=== PATIENT | female | born 1980 | race Caucasian/White ===

== ENCOUNTER 2019-08-04 18:54 | Emergency (ER) | payer BC ==
[2019-08-04] MEDS ORDERED: SODIUM CHLORIDE 0.9% 1,000 ML IV STA (19:26)
--- NOTE | 2019-08-04 19:30 | ED ---
General Adult HPI - General Chief complaint: Syncope Stated complaint: abn EKG Time Seen by Provider: 08/04/19 19:13 Source: patient Mode of arrival: ambulatory Limitations: no limitations - History of Present Illness Initial comments: 39-year-old female patient presents to the emergency department today for abnormal EKG. Patient states that earlier today while doing dishes she became very dizzy, felt like her heart was slowing down, and nearly passed out. Patient states that this happened twice so she presented to her primary care physician's office. States they did perform EKG which appeared different from one performed in the spring. Patient states that she does have history of panic disorder and PTSD. States that she is very anxious at this time. States that at the time of symptom onset she did not have any chest pain or tightness. She denied shortness of breath. States she now does feel some chest tightness but believes it is related to her anxiety. She states she is nauseated but has not vomited. States that she has recently been sick with upper respiratory infection and did have vomiting and diarrhea on Friday. Patient denies any recent rash, fever, chills, diarrhea, constipation, back pain, numbness, tingling, hematuria, dysuria, urinary frequency, urinary urgency headache, visual changes, or any other complaints. - Related Data Home Medications Medication Instructions Recorded Confirmed ALPRAZolam [Xanax] 0.25 mg PO DAILY PRN 08/04/19 08/04/19 Naproxen Sodium [Aleve] 440 mg PO Q12HR 08/04/19 08/04/19 busPIRone HCl [Buspar] 5 mg PO DAILY 08/04/19 08/04/19 Allergies Allergy/AdvReac Type Severity Reaction Status Date / Time codeine Allergy Rash/Hives Verified 08/04/19 19:21 Review of Systems ROS Statement: Those systems with pertinent positive or pertinent negative responses have been documented in the HPI. ROS Other: All systems not noted in ROS Statement are negative. Past Medical History Past Medical History: No Reported History History of Any Multi-Drug Resistant Organisms: None Reported Past Surgical History: No Surgical Hx Reported, Adenoidectomy, Ear Surgery, Or thopedic Surgery, Tonsillectomy Additional Past Surgical History / Comment(s): R foot, R hand, nose surgery Past Psychological History: Anxiety, Panic Disorder Smoking Status: Current every day smoker Past Alcohol Use History: Occasional Past Drug Use History: None Reported General Exam Limitations: no limitations General appearance: alert, in no apparent distress, other (This is a well- developed, well-nourished adult female patient in no acute distress. Vital signs upon presentation are temperature 98.8F, pulse 85, respirations 18, blood pressure 147/81, pulse ox 100% on room air.) Eye exam: Present: normal appearance, PERRL, EOMI. Absent: scleral icterus, conjunctival injection, periorbital swelling ENT exam: Present: normal exam, normal oropharynx, mucous membranes moist Respiratory exam: Present: normal lung sounds bilaterally. Absent: respiratory distress, wheezes, rales, rhonchi, stridor Cardiovascular Exam: Present: regular rate, normal rhythm, normal heart sounds. Absent: systolic murmur, diastolic murmur, rubs, gallop, clicks GI/Abdominal exam: Present: soft, normal bowel sounds. Absent: distended, tenderness, guarding, rebound, rigid Neurological exam: Present: alert, oriented X3, CN II-XII intact Psychiatric exam: Present: anxious, other (Tearful) Skin exam: Present: warm, dry, intact, normal color. Absent: rash Course Vital Signs 08/04/19 08/04/19 08/04/19 18:59 19:41 19:47 Temperature 98.8 F Pulse Rate 85 Pulse Rate [ 79 Apical] Respiratory 18 Rate Blood Pressure 147/81 114/80 O2 Sat by Pulse 100 98 Oximetry 08/04/19 08/04/19 08/04/19 19:50 20:00 20:10 Temperature Pulse Rate 90 77 Pulse Rate [ Apical] Respiratory 16 16 Rate Blood Pressure 114/80 114/80 126/81 O2 Sat by Pulse 98 99 Oximetry 08/04/19 08/04/19 08/04/19 20:30 20:40 20:50 Temperature Pulse Rate 74 79 80 Pulse Rate [ Apical] Respiratory 18 18 13 Rate Blood Pressure 126/81 108/70 108/70 O2 Sat by Pulse 100 100 100 Oximetry 08/04/19 08/04/19 08/04/19 21:00 21:10 21:20 Temperature Pulse Rate 77 78 79 Pulse Rate [ Apical] Respiratory 22 20 20 Rate Blood Pressure 108/70 103/65 103/65 O2 Sat by Pulse 98 99 99 Oximetry 09/18/19 21:50 Temperature 98.0 F Pulse Rate 76 Pulse Rate [ Apical] Respiratory 16 Rate Blood Pressure 122/77 O2 Sat by Pulse 98 Oximetry EKG Findings - EKG Comments: EKG Findings:: EKG obtained at 194 shows normal sinus rhythm with a ventricular rate of 88, WA interval 142, QRS duration 88, QT 362, QTc 438. No evidence of ST elevation or depression. Medical Decision Making - Medical Decision Making 39-year-old female patient presented to the emergency department today for evaluation of 2 episodes of near syncope earlier today. Patient was seen in her primary care physician's office they told her her EKG had changed from previous and they instructed her to present to the emergency department. Physical examination is unremarkable. Lung and heart sounds are normal. She is neurologically intact with no focal deficits. Labs reviewed and were unremarkable. EKG showed normal sinus rhythm. Vital signs are stable. She'll be discharged at this time to follow-up with her primary care physician for recheck in 1-2 days. Return parameters were discussed in detail. She verbalizes understanding and agrees with this plan - Lab Data Result diagrams: 08/04/19 19:57 08/04/19 19:57 Lab Results 08/04/19 08/04/19 08/04/19 Range/Units 19:57 19:57 19:57 WBC 11.1 H (3.8-10.6) k/uL RBC 4.61 (3.80-5.40) m/uL Hgb 14.9 (11.4-16.0) gm/dL Hct 43.6 (34.0-46.0) % MCV 94.5 (80.0-100.0) fL MCH 32.3 (25.0-35.0) pg MCHC 34.2 (31.0-37.0) g/dL RDW 14.2 (11.5-15.5) % Plt Count 182 (150-450) k/uL Neutrophils % 71 % Lymphocytes % 23 % Monocytes % 3 % Eosinophils % 2 % Basophils % 1 % Neutrophils # 7.8 H (1.3-7.7) k/uL Lymphocytes # 2.5 (1.0-4.8) k/uL Monocytes # 0.3 (0-1.0) k/uL Eosinophils # 0.2 (0-0.7) k/uL Basophils # 0.1 (0-0.2) k/uL PT 10.1 (9.0-12.0) sec INR 0.9 (<1.2) APTT 22.4 (22.0-30.0) sec Sodium 138 (137-145) mmol/L Potassium 5.0 (3.5-5.1) mmol/L Chloride 105 (98-107) mmol/L Carbon Dioxide 23 (22-30) mmol/L Anion Gap 10 mmol/L BUN 10 (7-17) mg/dL Creatinine 0.58 (0.52-1.04) mg/dL Est GFR (CKD-EPI)AfAm >90 (>60 ml/min/1.73 sqM) Est GFR (CKD-EPI)NonAf >90 (>60 ml/min/1.73 sqM) Glucose 89 (74-99) mg/dL Calcium 9.4 (8.4-10.2) mg/dL Magnesium 2.1 (1.6-2.3) mg/dL Total Bilirubin 1.2 (0.2-1.3) mg/dL AST 33 (14-36) U/L ALT 14 (9-52) U/L Alkaline Phosphatase 54 (38-126) U/L Troponin I (0.000-0.034) ng/mL Total Protein 8.1 (6.3-8.2) g/dL Albumin 4.8 (3.5-5.0) g/dL Urine Color Urine Appearance (Clear) Urine pH (5.0-8.0) Ur Specific Crawford (1.001-1.035) Urine Protein (Negative) Urine Glucose (UA) (Negative) Urine Ketones (Negative) Urine Blood (Negative) Urine Nitrite (Negative) Urine Bilirubin (Negative) Urine Urobilinogen (<2.0) mg/dL Ur Leukocyte Esterase (Negative) 08/04/19 08/04/19 Range/Units 19:57 19:57 WBC (3.8-10.6) k/uL RBC (3.80-5.40) m/uL Hgb (11.4-16.0) gm/dL Hct (34.0-46.0) % MCV (80.0-100.0) fL MCH (25.0-35.0) pg MCHC (31.0-37.0) g/dL RDW (11.5-15.5) % Plt Count (150-450) k/uL Neutrophils % % Lymphocytes % % Monocytes % % Eosinophils % % Basophils % % Neutrophils # (1.3-7.7) k/uL Lymphocytes # (1.0-4.8) k/uL Monocytes # (0-1.0) k/uL Eosinophils # (0-0.7) k/uL Basophils # (0-0.2) k/uL PT (9.0-12.0) sec INR (<1.2) APTT (22.0-30.0) sec Sodium (137-145) mmol/L Potassium (3.5-5.1) mmol/L Chloride (98-107) mmol/L Carbon Dioxide (22-30) mmol/L Anion Gap mmol/L BUN (7-17) mg/dL Creatinine (0.52-1.04) mg/dL Est GFR (CKD-EPI)AfAm (>60 ml/min/1.73 sqM) Est GFR (CKD-EPI)NonAf (>60 ml/min/1.73 sqM) Glucose (74-99) mg/dL Calcium (8.4-10.2) mg/dL Magnesium (1.6-2.3) mg/dL Total Bilirubin (0.2-1.3) mg/dL AST (14-36) U/L ALT (9-52) U/L Alkaline Phosphatase (38-126) U/L Troponin I <0.012 (0.000-0.034) ng/mL Total Protein (6.3-8.2) g/dL Albumin (3.5-5.0) g/dL Urine Color Light Yellow Urine Appearance Clear (Clear) Urine pH 5.5 (5.0-8.0) Ur Specific Crawford 1.004 (1.001-1.035) Urine Protein Negative (Negative) Urine Glucose (UA) Negative (Negative) Urine Ketones 1+ H (Negative) Urine Blood Negative (Negative) Urine Nitrite Negative (Negative) Urine Bilirubin Negative (Negative) Urine Urobilinogen <2.0 (<2.0) mg/dL Ur Leukocyte Esterase Negative (Negative) - Radiology Data Radiology results: report reviewed, image reviewed Two-view x-ray of the chest is obtained. Report was reviewed in its entirety. Impression by Dr. Shen shows normal chest. Disposition Clinical Impression: Near syncope Disposition: HOME SELF-CARE Condition: Good Instructions (If sedation given, give patient instructions): Near Syncope (ED) Additional Instructions: Increase fluids. Rest. Follow-up with your primary care physician for recheck in 1-2 days. Return to the emergency department immediately for any new, worse jalil, or concerning symptoms. Is patient prescribed a controlled substance at d/c from ED?: No Referrals: Jake Carter MD [Primary Care Provider] - 1-2 days Time of Disposition: 21:42
[2019-08-04 20:07] LABS: Basophils # (A) 0.1 k/uL (0-0.2); Basophils % (A) 1 %; Eosinophils # (A) 0.2 k/uL (0-0.7); Eosinophils % (A) 2 %; HCT 43.6 % (34.0-46.0); HGB 14.9 gm/dL (11.4-16.0); Lymphocytes # (A) 2.5 k/uL (1.0-4.8); Lymphocytes % (A) 23 %; MCH 32.3 pg (25.0-35.0); MCHC 34.2 g/dL (31.0-37.0); MCV 94.5 fL (80.0-100.0); Mean Platelet Volume 8.1; Monocytes # (A) 0.3 k/uL (0-1.0); Monocytes % (A) 3 %; Neutrophils # (A) 7.8 k/uL (1.3-7.7); Neutrophils % (A) 71 %; Platelet Count 182 k/uL (150-450); RBC 4.61 m/uL (3.80-5.40); RDW 14.2 % (11.5-15.5); WBC 11.1 k/uL (3.8-10.6)
[2019-08-04 20:16] LABS: Appearance,Urine Clear (Clear); Bilirubin,Urine Negative (Negative); Blood,Urine Negative (Negative); Color,Urine Light Yellow; Glucose,Urine (UA) Negative (Negative); Ketones,Urine 1+ (Negative); Leukocyte Esterase,Urine Negative (Negative); Nitrite,Urine Negative (Negative); PH, Urine 5.5 (5.0-8.0); Protein,Urine Negative (Negative); Specific Gravity,Urine 1.004 (1.001-1.035); Urobilinogen,Urine <2.0 mg/dL (<2.0)
[2019-08-04 20:17] LABS: INR 0.9 (<1.2); Partial Thromboplastin Time 22.4 sec (22.0-30.0); Prothrombin Time 10.1 sec (9.0-12.0)
--- NOTE | 2019-08-04 20:24 | XR ---
EXAMINATION TYPE: XR chest 2V DATE OF EXAM: 08/04/2019 COMPARISON: NONE HISTORY: Syncope. Abnormal cardiogram TECHNIQUE: Frontal and lateral views of the chest are obtained. FINDINGS: Heart and mediastinum are normal. Lungs are clear. Diaphragm is normal. Bony thorax appear s normal. IMPRESSION: Normal chest.
[2019-08-04 20:29] LABS: ALT 14 U/L (9-52); AST 33 U/L (14-36); African American GFR (CKD) >90 (>60 ml/min/1.73 sqM); Albumin 4.8 g/dL (3.5-5.0); Alkaline Phosphatase 54 U/L (38-126); Anion Gap 10 mmol/L; Blood Urea Nitrogen 10 mg/dL (7-17); Calcium 9.4 mg/dL (8.4-10.2); Carbon Dioxide 23 mmol/L (22-30); Chloride 105 mmol/L (98-107); Glucose 89 mg/dL (74-99); Magnesium 2.1 mg/dL (1.6-2.3); Sodium 138 mmol/L (137-145); Total Bilirubin 1.2 mg/dL (0.2-1.3); Total Protein 8.1 g/dL (6.3-8.2)
[2019-08-04 21:51] VITALS: BP 122/77; PULSE 76; RESP 16; TEMP 98
== END 2019-08-04 21:51 | disposition home or self-care (01) ==
LOC: EC 18:54
DX: R55 Syncope and collapse (principal); F41.9 Anxiety disorder, unspecified; F41.0 Panic disorder [episodic paroxysmal anxiety]; F17.200 Nicotine dependence, unspecified, uncomplicated; Z79.1 Long term (current) use of non-steroidal anti-inflammatories (NSAID); Z79.899 Other long term (current) drug therapy; Z88.5 Allergy status to narcotic agent
CPT/HCPCS: 36415; 71046; 80053; 81003; 83735; 84484; 85025; 85610; 85730; 93005; 96360; 96361; 99284

== ENCOUNTER → 2019-08-24 | Outpatient (CLI) | payer BC ==
--- NOTE | 2019-08-25 11:40 | ECHOF ---
Referral Reason:R94.31 abnormal EKG MEASUREMENTS -------- HEIGHT: 167.6 cm WEIGHT: 58.1 kg BP: RVIDd: 2.8 cm (< 3.3) IVSd: 1.2 cm (0.6 - 1.1) LVIDd: 3.2 cm (3.9 - 5.3) LVPWd: 1.1 cm (0.6 - 1.1) IVSs: 1.6 cm LVIDs: 2.0 cm LVPWs: 1.8 cm LAESV Index (A-L): 26.11 ml/m Ao Diam: 3.2 cm (2.0 - 3.7) AV Cusp: 1.9 cm (1.5 - 2.6) LA Diam: 3.2 cm (2.7 - 3.8) TAPSE: 2.1 cm EPSS: 0.6 cm MV E Preet: 0.91 m/s MV DecT: 172 ms MV A Preet: 0.67 m/s MV E/A Ratio: 1.36 RAP: 5.00 mmHg RVSP: 18.45 mmHg MV EF SLOPE: 103.86 mm/s (70 - 150) MV EXCURSION: 0.98 cm (> 18.000) FINDINGS -------- Sinus rhythm. This was a technically good study. The left ventricular size is normal. There is mild concentric left ventricular hypertrophy. Overa ll left ventricular systolic function is normal with, an EF between 55 - 60 %. The diastolic fillin g pattern is normal for the age of the patient 6.61. The right ventricle is normal in size. Normal LA size by volume 22+/-6 ml/m2. The right atrial size is normal. Interatrial and interventricular septum intact. The aortic valve is trileaflet and appears structurally normal. There is no evidence of aortic regu rgitation. There is no evidence of aortic stenosis. No mitral regurgitation. Mild tricuspid regurgitation present. There is no evidence of pulmonary hypertension. The right v entricular systolic pressure, as measured by Doppler, is 18.45mmHg. There is no pulmonic regurgitation present. The aortic root size is normal. The inferior vena cava is mildly dilated. There is no pericardial effusion. CONCLUSIONS -------- 1. Sinus rhythm. 2. This was a technically good study. 3. The left ventricular size is normal. 4. There is mild concentric left ventricular hypertrophy. 5. Overall left ventricular systolic function is normal with, an EF between 55 - 60 %. 6. The diastolic filling pattern is normal for the age of the patient 6.61 7. The right ventricle is normal in size. 8. Normal LA size by volume 22+/-6 ml/m2. 9. The right atrial size is normal. 10. Interatrial and interventricular septum intact. 11. The aortic valve is trileaflet and appears structurally normal. 12. There is no evidence of aortic regurgitation. 13. There is no evidence of aortic stenosis. 14. No mitral regurgitation. 15. Mild tricuspid regurgitation present. 16. There is no evidence of pulmonary hypertension. 17. The right ventricular systolic pressure, as measured by Doppler, is 18.45mmHg. 18. There is no pulmonic regurgitation present. 19. The aortic root size is normal. 20. The inferior vena cava is mildly dilated. 21. There is no pericardial effusion. MINI BACCARAT DEALER: Sharri Adamson RDCS
== END | disposition home or self-care (01) ==
LOC: RADECHMAIN 16:27
PROVIDERS: ATTEND Family Medicine
DX: I07.1 Rheumatic tricuspid insufficiency (principal)
CPT/HCPCS: 93306

== ENCOUNTER → 2019-09-01 | Outpatient (CLI) | payer BC ==
--- NOTE | 2019-09-01 19:37 | P.STRESS ---
- Stress Test Note Stress Test Results/Findings: Exam Performed: stress test Exam Date: 09/01/19 Reason for Exam: Abnormal EKG Height: 5 ft 5 in Weight: 56.245 kg Protocol: Miki Stage: 3 Duration of Exercise: 8:25 Resting Heart Rate: 102 Resting Blood Pressure: 103/76 Maximum Achieved Heart Rate: 159 Maximum Achieved Blood Pressure: 157/67 85% PMHR: 155 100% PMHR: 182 METS: 10.1 Technologist Comment: Stress Test Results/Findings: This is a 39-year-old female being evaluated for symptoms of chest pain and palpitations. Stress data Baseline EKG showed sinus rhythm with normal LA interval, QRS duration, and poor R-wave progression in the anterior leads. Blood pressure at rest is 103/75, pulse rate of 1 and 2. Patient walked on the Miki protocol for 8 minutes and 25 seconds achieving a maximum heart rate of 159 with a blood pressure 157/67. EKGs taken during and after exercise did not reveal changes to suggest ischemia. Patient did not experience any chest pain. No arrhythmias are noted. Final impression: #1. Negative stress test #2. Patient did not experience any chest pain #3. Average exercise capacity #4. No arrhythmias noted
--- NOTE | 2019-09-02 11:25 | EST ---
Stress Test Results/Findings: Exam Performed: stress test Exam Date: 09/01/19 Reason for Exam: Abnormal EKG Height: 5 ft 5 in Weight: 56.245 kg Protocol: Miki Stage: 3 Duration of Exercise: 8:25 Resting Heart Rate: 102 Resting Blood Pressure: 103/76 Maximum Achieved Heart Rate: 159 Maximum Achieved Blood Pressure: 157/67 85% PMHR: 155 100% PMHR: 182 METS: 10.1 Technologist Comment: Stress Test Results/Findings: This is a 39-year-old female being evaluated for symptoms of chest pain and palpitations. Stress data Baseline EKG showed sinus rhythm with normal VT interval, QRS duration, and poor R-wave progression in the anterior leads. Blood pressure at rest is 103/75, pulse rate of 1 and 2. Patient walked on the Miki protocol for 8 minutes and 25 seconds achieving a maximum heart rate of 159 with a blood pressure 157/67. EKGs taken during and after exercise did not reveal changes to suggest ischemia. Patient did not experience any chest pain. No arrhythmias are noted. Final impression: #1. Negative stress test #2. Patient did not experience any chest pain #3. Average exercise capacity #4. No arrhythmias noted MTDD
== END | disposition home or self-care (01) ==
LOC: RADNMMAIN 08:36
PROVIDERS: ATTEND Family Medicine
DX: R94.31 Abnormal electrocardiogram [ECG] [EKG] (principal)
CPT/HCPCS: 93017

== ENCOUNTER 2019-12-12 10:46 | Observation (INO) | payer BC ==
[2019-12-12] MEDS ORDERED: SODIUM CHLORIDE 0.9% 1,000 ML IV STA (11:18)
[2019-12-12 11:49] LABS: Basophils % (A) 0 %; Eosinophils # (A) 0.1 k/uL (0-0.7); Eosinophils % (A) 1 %; HCT 42.6 % (34.0-46.0); HGB 14.2 gm/dL (11.4-16.0); Lymphocytes # (A) 2.2 k/uL (1.0-4.8); Lymphocytes % (A) 25 %; MCHC 33.3 g/dL (31.0-37.0); MCV 96.3 fL (80.0-100.0); Mean Platelet Volume 7.7; Monocytes # (A) 0.2 k/uL (0-1.0); Monocytes % (A) 3 %; Neutrophils # (A) 5.9 k/uL (1.3-7.7); Neutrophils % (A) 69 %; Platelet Count 186 k/uL (150-450); RBC 4.43 m/uL (3.80-5.40); RDW 11.9 % (11.5-15.5); WBC 8.6 k/uL (3.8-10.6)
[2019-12-12 11:57] LABS: ALT 12 U/L (4-34); AST 18 U/L (14-36); African American GFR (CKD) >90 (>60 ml/min/1.73 sqM); Albumin 4.5 g/dL (3.5-5.0); Alkaline Phosphatase 56 U/L (38-126); Anion Gap 7 mmol/L; Blood Urea Nitrogen 9 mg/dL (7-17); Calcium 9.3 mg/dL (8.4-10.2); Carbon Dioxide 28 mmol/L (22-30); Chloride 105 mmol/L (98-107); Glucose 106 mg/dL (74-99); Non-African American GFR(CKD) >90 (>60 ml/min/1.73 sqM); Potassium 4.6 mmol/L (3.5-5.1); Sodium 140 mmol/L (137-145); Total Bilirubin 1.1 mg/dL (0.2-1.3); Total Protein 7.4 g/dL (6.3-8.2)
--- NOTE | 2019-12-12 12:17 | CT ---
EXAMINATION TYPE: CT soft tissue neck w con DATE OF EXAM: 12/12/2019 12:05 PM COMPARISON: None. HISTORY: throat pain, dysphagia CT DLP: 178.9 mGycm Automated exposure control for dose reduction was used. CONTRAST: CT scan of the neck is performed following with IV Contrast, patient injected with 100 mL of Isovue 3 00. Axial images are obtained, coronal and sagittal reformatted images are reviewed. FINDINGS: There are emphysematous changes within the lungs. There is a marked reversal of the normal cervical lordosis which is replaced by kyphosis. Alignment r emains normal. Atlantoaxial relationships are normal. There is degenerative disc disease and hypertro phic spondylosis at C4-5, C5-6 and C6-7. There is mild uncovertebral joint disease present at these l evels. No definite protrusion is seen. Visualized intracranial structures are unremarkable. Visualized portions of the paranasal sinuses and mastoids are clear. There is some symmetric swelling in the parapharyngeal soft tissues and the fossa of Rosenmuller is e ffaced bilaterally. There is some swelling and wall diameters ranging. No definite abscess is seen. P haryngeal and laryngeal soft tissues appear normal. The epiglottis appears normal. There is some shot ty adenopathy in the deep cervical triangle on the left. There is also some posterior reticular adeno melanie on the left. No radiopaque foreign body is seen. IMPRESSION: 1. MILD GENERALIZED SWELLING IN THE FIRST PARAPHARYNGEAL SOFT TISSUES. I DO NOT SEE EVIDENCE OF A RET ROPHARYNGEAL ABSCESS. 2. NORMAL EPIGLOTTIS. 3. NONSPECIFIC LEFT-SIDED ADENOPATHY. 4. EMPHYSEMATOUS CHANGES WITHIN THE LUNGS. 5. DEGENERATIVE CHANGES WITHIN THE SPINE SPINE.
[2019-12-12] MEDS ORDERED: AMPICILLIN-SULBACTAM 3 GM in SODIUM CHLORIDE 0.9% 100 ML IVPB STA (13:05)
[2019-12-12] MEDS ORDERED: DEXAMETHASONE SOD PHOSPHATE 10 MG/ML 1 ML VIAL IV STA (13:05)
--- NOTE | 2019-12-12 13:12 | ED ---
General Adult HPI - General Chief complaint: Recheck/Abnormal Lab/Rx Stated complaint: Throat pain Time Seen by Provider: 12/12/19 10:57 Source: patient, RN notes reviewed Mode of arrival: ambulatory Limitations: no limitations - History of Present Illness Initial comments: 39-year-old female presents to the emergency department for a chief complaint of difficulty swallowing. Patient states that she has had a sinus congestion for several months. States that she recently started have a sore throat with this about 2 weeks ago. States she saw primary care twice. She has a computed tomography scan scheduled in 2 days. States she initially took Augmentin for 3 days for an ear infection but that was not helping her ear pain so switched her to cefdinir. States she only took this for a few days and then stopped taking it because it was causing her diarrhea. Patient states she was given a swish and spit medication for throat pain but did not want to use it. Patient states that she feels like she has some swelling in her throat. States she feels like when she tries to swallow she gets things stuck on the right side of her throat. He denies any difficulty breathing or handling secretions. States she had a fever last week but has not had one since. No neck pain or stiffness. Patient has no other complaints at this time including shortness of breath, chest pain, abdominal pain, nausea or vomiting, headache, or visual changes. - Related Data Home Medications Medication Instructions Recorded Confirmed ALPRAZolam [Xanax] 0.25 mg PO DAILY PRN 08/04/19 12/12/19 Ibuprofen [Advil] 400 mg PO Q8HR PRN 12/12/19 12/12/19 Keith's Solution 5 ml MUCOUS MEM TID PRN 12/12/19 12/12/19 L.acidoph,Paracasei, B.lactis 1 cap PO DAILY 12/12/19 12/12/19 [Probiotic] Loratadine [Claritin] 10 mg PO DAILY 12/12/19 12/12/19 Mag Hydrox/Aluminum Hyd/Simeth 10 ml PO Q4H PRN 12/12/19 12/12/19 [Mylanta Maximum Strength Liq] predniSONE See Taper PO DAILY 12/12/19 12/12/19 Allergies Allergy/AdvReac Type Severity Reaction Status Date / Time codeine Allergy Rash/Hives Verified 12/12/19 13:42 cefdinir AdvReac Diarrhea Verified 12/12/19 13:42 Review of Systems ROS Statement: Those systems with pertinent positive or pertinent negative responses have been documented in the HPI. ROS Other: All systems not noted in ROS Statement are negative. Past Medical History Past Medical History: No Reported History History of Any Multi-Drug Resistant Organisms: None Reported Past Surgical History: Adenoidectomy, Ear Surgery, Orthopedic Surgery, Tonsillectomy Additional Past Surgical History / Comment(s): R foot, R hand, nose surgery Past Psychological History: Anxiety, Panic Disorder Smoking Status: Current every day smoker Past Alcohol Use History: Occasional Past Drug Use History: None Reported General Exam Limitations: no limitations General appearance: alert, in no apparent distress (In no distress, laying back in bed. Handling secretions. No respiratory difficulty.) Head exam: Present: atraumatic, normocephalic, normal inspection Eye exam: Present: normal appearance, PERRL, EOMI. Absent: scleral icterus, conjunctival injection, periorbital swelling ENT exam: Present: normal exam, normal oropharynx, mucous membranes moist, TM's normal bilaterally (Possible small ulceration on the right peritonsillar pillar however no edema. No exudates. Uvula is midline. Tonsillar pillars are symmetric.), normal external ear exam Neck exam: Present: normal inspection, full ROM. Absent: tenderness, meningismu s, lymphadenopathy Respiratory exam: Present: normal lung sounds bilaterally. Absent: respiratory distress, wheezes, rales, rhonchi, stridor Cardiovascular Exam: Present: regular rate, normal rhythm, normal heart sounds. Absent: systolic murmur, diastolic murmur, rubs, gallop, clicks Course Vital Signs 12/12/19 10:48 Temperature 98.4 F Pulse Rate 97 Respiratory 18 Rate Blood Pressure 118/83 O2 Sat by Pulse 98 Oximetry Medical Decision Making - Medical Decision Making Vitals stable. CBC CMP unremarkable. White blood count is 8.6. HCG is negative. Heterophile and group A strep negative. CT soft tissue neck with contrast shows mild generalized swelling in the first peripharyngeal soft tissues without evidence of retropharyngeal abscess. Normal epiglottis. Left- sided adenopathy. Dr. Cash spoke with Dr. Fitzgerald who accepts this admission. Patient is stable at this time, no difficulty handling secretions, no respir atory distress. Patient was given 10 mg of IV Decadron and started on Unasyn here in the emergency department. - Lab Data Result diagrams: 12/12/19 11:33 12/12/19 11:33 Lab Results 12/12/19 12/12/19 12/12/19 Range/Units 11:33 11:33 11:33 WBC 8.6 (3.8-10.6) k/uL RBC 4.43 (3.80-5.40) m/uL Hgb 14.2 (11.4-16.0) gm/dL Hct 42.6 (34.0-46.0) % MCV 96.3 (80.0-100.0) fL MCH 32.0 (25.0-35.0) pg MCHC 33.3 (31.0-37.0) g/dL RDW 11.9 (11.5-15.5) % Plt Count 186 (150-450) k/uL Neutrophils % 69 % Lymphocytes % 25 % Monocytes % 3 % Eosinophils % 1 % Basophils % 0 % Neutrophils # 5.9 (1.3-7.7) k/uL Lymphocytes # 2.2 (1.0-4.8) k/uL Monocytes # 0.2 (0-1.0) k/uL Eosinophils # 0.1 (0-0.7) k/uL Basophils # 0.0 (0-0.2) k/uL Sodium 140 (137-145) mmol/L Potassium 4.6 (3.5-5.1) mmol/L Chloride 105 (98-107) mmol/L Carbon Dioxide 28 (22-30) mmol/L Anion Gap 7 mmol/L BUN 9 (7-17) mg/dL Creatinine 0.62 (0.52-1.04) mg/dL Est GFR (CKD-EPI)AfAm >90 (>60 ml/min/1.73 sqM) Est GFR (CKD-EPI)NonAf >90 (>60 ml/min/1.73 sqM) Glucose 106 H (74-99) mg/dL Calcium 9.3 (8.4-10.2) mg/dL Total Bilirubin 1.1 (0.2-1.3) mg/dL AST 18 (14-36) U/L ALT 12 (4-34) U/L Alkaline Phosphatase 56 (38-126) U/L Total Protein 7.4 (6.3-8.2) g/dL Albumin 4.5 (3.5-5.0) g/dL Urine HCG, Qual Not Detected (Not Detectd) Heterophile Antibody (Negative) Group A Strep Rapid (Negative) 12/12/19 12/12/19 Range/Units 11:33 11:33 WBC (3.8-10.6) k/uL RBC (3.80-5.40) m/uL Hgb (11.4-16.0) gm/dL Hct (34.0-46.0) % MCV (80.0-100.0) fL MCH (25.0-35.0) pg MCHC (31.0-37.0) g/dL RDW (11.5-15.5) % Plt Count (150-450) k/uL Neutrophils % % Lymphocytes % % Monocytes % % Eosinophils % % Basophils % % Neutrophils # (1.3-7.7) k/uL Lymphocytes # (1.0-4.8) k/uL Monocytes # (0-1.0) k/uL Eosinophils # (0-0.7) k/uL Basophils # (0-0.2) k/uL Sodium (137-145) mmol/L Potassium (3.5-5.1) mmol/L Chloride (98-107) mmol/L Carbon Dioxide (22-30) mmol/L Anion Gap mmol/L BUN (7-17) mg/dL Creatinine (0.52-1.04) mg/dL Est GFR (CKD-EPI)AfAm (>60 ml/min/1.73 sqM) Est GFR (CKD-EPI)NonAf (>60 ml/min/1.73 sqM) Glucose (74-99) mg/dL Calcium (8.4-10.2) mg/dL Total Bilirubin (0.2-1.3) mg/dL AST (14-36) U/L ALT (4-34) U/L Alkaline Phosphatase (38-126) U/L Total Protein (6.3-8.2) g/dL Albumin (3.5-5.0) g/dL Urine HCG, Qual (Not Detectd) Heterophile Antibody Negative (Negative) Group A Strep Rapid Negative (Negative) Disposition Clinical Impression: Dysphagia Disposition: ADMITTED IP TO THIS HOSP Condition: Fair Is patient prescribed a controlled substance at d/c from ED?: No Referrals: Suresh Carter MD [Primary Care Provider] - 1-2 days Time of Disposition: 13:54
[2019-12-12] MEDS ORDERED: NALOXONE 0.4 MG/ML 1 ML VIAL IV PRN (13:48)
[2019-12-12] MEDS ORDERED: ONDANSETRON 4 MG/2 ML VIAL IVP PRN (13:48)
[2019-12-12] MEDS ORDERED: KETOROLAC 30 MG/ML 1 ML VIAL IVP PRN (13:48)
[2019-12-12] MEDS ORDERED: LORazepam 0.5 MG TAB PO PRN (17:38)
[2019-12-12] MEDS: SODIUM CHLORIDE 0.9% 1,000 ML IV SCH ×2 (18:56→23:59)
[2019-12-12] MEDS: AMPICILLIN-SULBACTAM 3 GM in SODIUM CHLORIDE 0.9% 100 ML IVPB SCH (21:23)
[2019-12-12] MEDS: DEXAMETHASONE SOD PHOSPHATE 10 MG/ML 1 ML VIAL IV SCH (21:23)
[2019-12-13 00:35] VITALS: TEMP 98.5
--- NOTE | 2019-12-13 00:45 | P.HPIM ---
History of Present Illness H&P Date: 12/12/19 Chief Complaint: Throat pain Patient is a 39-year-old female with a known history of anxiety, panic disorder came to ER with complaints of difficulty swallowing. Patient says that she's been having sinus problems started while she was flying back from [place] about 4 weeks ago. Patient is up flulike symptoms in November first week. Patient was seen by her primary care physician and was given a course of Augmentin which she to qualify days and was changed to Omnicef due to side effects. Patient developed diarrhea with antibiotics and stopped taking. Patient was also given prednisone which made her change in mental status. For the past 1 week patient has been having difficulty swallowing which is getting worse. Patient feels like something get stuck on the right side of her throat. Denied any chest pain or shortness of breath. No fever no chills. No nausea vomiting or abdominal pain or diarrhea. CT of the soft tissue neck showed mild generalized swelling in the first parapharyngeal tissues. No evidence of retropharyngeal abscess Normal epiglottis. Nonspecific left-sided adenopathy. Emphysematous changes within the lungs. Degenerative changes in the spine. Patient has been afebrile. No leukocytosis. Heterophile antibody and strep throat negative. Review of Systems Constitutional: Patient denies any fever or chills . No generalized weakness or weight loss. Abdomen: Patient denied nausea vomiting and diarrhea and abdominal pain. Cardiovascular: Patient denies any chest pain or short of breath no palpitations. Respiratory: patient denied any cough is from production. No shortness of marlon ath Patient does have throat pain Neurologic: Patient denied any numbness or tingling headache. Musculoskeletal: Patient denies any complaints of joint swelling or deformity. Skin: Negative Psychiatric: Anxiety Endocrine: No heat or cold intolerance. No recent weight gain. Genitourinary: No dysuria or hematuria. All other 14 point ROS negative except the above Past Medical History Past Medical History: No Reported History History of Any Multi-Drug Resistant Organisms: None Reported Past Surgical History: Adenoidectomy, Ear Surgery, Orthopedic Surgery, Tonsillectomy Additional Past Surgical History / Comment(s): R foot, R hand, nose surgery Past Anesthesia/Blood Transfusion Reactions: No Reported Reaction Additional Past Anesthesia/Blood Transfusion Reaction / Comment(s): patient has never had a blood transfusion Past Psychological History: Anxiety, Panic Disorder Smoking Status: Current every day smoker Past Alcohol Use History: Occasional Past Drug Use History: None Reported - Past Family History Father Family Medical History: Myocardial Infarction (CO) Mother Family Medical History: Congestive Heart Failure (CHF), Myocardial Infarction (CO) Medications and Allergies Home Medications Medication Instructions Recorded Confirmed Type ALPRAZolam [Xanax] 0.25 mg PO DAILY PRN 08/04/19 12/12/19 History Ibuprofen [Advil] 400 mg PO Q8HR PRN 12/12/19 12/12/19 History Keith's Solution 5 ml MUCOUS MEM TID PRN 12/12/19 12/12/19 History L.acidoph,Paracasei, B.lactis 1 cap PO DAILY 12/12/19 12/12/19 History [Probiotic] Loratadine [Claritin] 10 mg PO DAILY 12/12/19 12/12/19 History Mag Hydrox/Aluminum Hyd/Simeth 10 ml PO Q4H PRN 12/12/19 12/12/19 History [Mylanta Maximum Strength Liq] predniSONE See Taper PO DAILY 12/12/19 12/12/19 History Allergies Allergy/AdvReac Type Severity Reaction Status Date / Time codeine Allergy Rash/Hives Verified 12/12/19 13:42 cefdinir AdvReac Diarrhea Verified 12/12/19 13:42 Physical Exam Vitals: Vital Signs Temp Pulse Pulse Resp BP BP Pulse Ox 12/12/19 14:40 98.5 F 95 18 122/84 97 12/12/19 10:48 98.4 F 97 18 118/83 98 Intake and Output 12/12/19 12/12/19 12/12/19 06:59 14:59 22:59 Intake Total 1000 Balance 1000 Intake: Amount of Fluid Infused ( 1000 ml) Other: Weight 53.977 kg PHYSICAL EXAMINATION: Patient is lying in the bed comfortably, no acute distress, awake alert and oriented.. HEENT: Normocephalic. Neck is supple. Pupils reactive. Nostrils clear. Oral cavity is moist. Ears reveal no drainage. Neck reveals no JVD, carotid bruits, or thyromegaly. CHEST EXAMINATION: Trachea is central. Symmetrical expansion. Lung currie clear to auscultation and percussion. CARDIAC: Normal S1, S2 with no gallops. No murmurs ABDOMEN: Soft. Bowel sounds normal. No organomegaly. No abdominal bruits. Extremities: reveal no edema. No clubbing or cyanosis Neurologically awake, alert, oriented x3 with well-coordinated movements. No focal deficits noted Skin: No rash or skin lesions. Psychiatric: Coperative. Nonsuicidal. Anxious and emotional. Musculoskeletal: No joint swelling or deformity. Normal range of motion. Results CBC & Chem 7: 12/12/19 11:33 12/12/19 11:33 Labs: Abnormal Lab Results - Last 24 Hours (Table) 12/12/19 Range/Units 11:33 Glucose 106 H (74-99) mg/dL Thrombosis Risk Factor Assmnt - DVT/VTE Prophylaxis DVT/VTE Prophylaxis: Pharmacologic Prophylaxis ordered - Choose All That Apply Any of the Below Risk Factors Present?: Yes Other Risk Factors: No Assessment and Plan Assessment: Throat pain with mild generalized swelling of the pharyngeal soft tissues. Rule out abscess. Recent history of sinusitis and noncompliant with antibiotics and steroids due to side effects Anxiety, panic disorder Ongoing nicotine addiction. Currently every day smoker DVT prophylaxis. Early ambulation Plan: Patient will be continued on IV antibiotic the form of Unasyn and Decadron IV 3 doses. Continue with pain management with Toradol. Consider ENT evaluation if not improving clinically. Further recommendations based on the clinical course. Smoking cessation has been counseled extensively. Time with Patient: Greater than 30
[2019-12-13] MEDS: DEXAMETHASONE SOD PHOSPHATE 10 MG/ML 1 ML VIAL IV SCH ×2 (02:31→08:44)
[2019-12-13] MEDS: AMPICILLIN-SULBACTAM 3 GM in SODIUM CHLORIDE 0.9% 100 ML IVPB SCH ×2 (02:31→08:52)
[2019-12-13] MEDS: SODIUM CHLORIDE 0.9% 1,000 ML IV SCH (06:44)
[2019-12-13 08:10] VITALS: BP 114/71; PULSE 97; RESP 17
--- NOTE | 2019-12-13 11:42 | P.PN ---
Subjective Patient is a 39-year-old female with a known history of anxiety, panic disorder, history of tonsillectomy, adenoidectomy and right ear surgery when she was 6 years old and presents to the hospital for difficulty swallowing and throat pain for 2 weeks Shreya failed outpatient therapy. She was having right ear infection prescribed Augmentin and change later on to cephalosporin by her family doctor, with no resolution of symptoms, she was having difficulty swallowing pain behind her right ear, choking whenever she eats, she says that her pain is 4/10 in severity and the right side of the ear and throat and below her general at times. Also patient was given steroids injection and prednisone which made her jittery and shakiness in the hand and does not want to take it anymore She is breathing easily. She denies dyspnea or chest pain. Also on admission her blood pressure was on the low side 89/53, currently 114/71, patient says that her usual blood pressure is around 120/70s. However she denies dizziness currently. Urine breasts acid test is negative, I offered to do so test but patient declined. Risks and benefits of her explained and she verbalized understanding and acceptance Patient currently is able to drink liquids but not solid food, she was to see ENT doctor which is already consulted CT of the soft tissue neck showed mild generalized swelling in the first parapharyngeal tissues. No evidence of retropharyngeal abscess Normal epiglottis. Nonspecific left-sided adenopathy. Emphysematous changes within the lungs. Degenerative changes in the spine. Patient has been afebrile. No leukocytosis. Heterophile antibody and strep throat negative. Objective - Vital Signs Vital signs: Vital Signs Temp 98.5 F 12/13/19 08:00 Pulse 97 12/13/19 08:00 Resp 17 12/13/19 08:00 BP 114/71 12/13/19 08:00 Pulse Ox 99 12/13/19 08:00 Intake & Output 12/12/19 12/13/19 12/13/19 18:59 06:59 18:59 Intake Total 1000 Balance 1000 Weight 53.977 kg Intake: Amount of Fluid Infused ( 1000 ml) Other: Voiding Method Toilet Toilet # Voids 1 - Exam GENERAL: The patient is alert and oriented x3, not in any acute distress. Well developed, well nourished. -HEENT: Pupils are round and equally reacting to light. EOMI. No scleral icterus. No conjunctival pallor. Normocephalic, atraumatic. No pharyngeal erythema. No thyromegaly. Mild tenderness on the right side of the throat. Possible mild pharyngitis, exam is limited, we defer official throat exam to ENT team CARDIOVASCULAR: S1 and S2 present. No murmurs, rubs, or gallops. PULMONARY: Chest is clear to auscultation, no wheezing or crackles. ABDOMEN: Soft, nontender, nondistended, normoactive bowel sounds. No palpable organomegaly. MUSCULOSKELETAL: No joint swelling or deformity. EXTREMITIES: No cyanosis, clubbing, or pedal edema. NEUROLOGICAL: Gross neurological examination did not reveal any focal deficits. SKIN: No rashes. no petechiae. - Labs CBC & Chem 7: 12/12/19 11:33 12/12/19 11:33 Labs: Abnormal Lab Results - Last 24 Hours (Table) 12/12/19 Range/Units 11:33 Glucose 106 H (74-99) mg/dL Microbiology - Last 24 Hours (Table) 12/12/19 11:33 Group A Strep Throat Culture - Preliminary Throat Assessment and Plan Assessment: Throat pain with mild generalized swelling of the pharyngeal soft tissues. Rule out abscess. Recent history of right ear infection Anxiety, panic disorder, not an active issue Ongoing nicotine addiction. Currently every day smoker. Patient is counseled. Nicotine patches effort but patient declined. DVT prophylaxis. Early ambulation Plan: This is a pleasant 39 years old female who presents with throat infection and difficulty swallowing. Continue with swallow evaluation. Continue with Unasyn. Continue with Toradol as needed for pain. Continue with normal saline at 75 clinic per hour. Follow-up recommendation by ENT team Labs and medication were reviewed.. Continue same treatment. Continue with symptomatic treatment. Resume home medication. Monitor lytes and vitals. DVT and GI prophylaxis. Further recommendations of the clinical course of the patient DVT prophylaxis: Earlier mobility, no need for subcutaneous heparin GI Prophylaxis: Pepcid
[2019-12-13] MEDS ORDERED: ALPRAZolam 0.25 MG TAB PO PRN (12:25)
[2019-12-13] MEDS ORDERED: AMOXIC-POT CLAV 875-125MG 1 EACH TAB PO SCH (15:00)
--- NOTE | 2019-12-13 19:02 | CONS ---
CONSULTATION SOURCE OF CONSULTATION: 12/13/2019 REASON FOR CONSULTATION: Pharyngeal swelling. HISTORY OF PRESENT ILLNESS: This patient is a pleasant but anxious 39-year-old female who was admitted to [facility] for further evaluation of possible pharyngeal swelling. The patient states that approximately a week to 10 days ago she developed a sensation of swelling in her throat and also felt she was having difficulty swallowing. She denied at that time any extreme pain on swallowing. She states that she saw her primary care physician and was placed initially on Augmentin 875. She took there for 3 days, did not feel it was improving and therefore she went back to her doctor who then placed on a second antibiotic, Omnicef and the patient subsequently developed nausea and diarrhea. She stopped taking that medication after 1 or 2 days. Her symptoms have persisted. She returned and this time apparently went to the emergency room. Her laboratory tests were unremarkable. There was no evidence of any elevated white count and the patient was afebrile. A CT scan of the neck showed slight swelling of the pharyngeal/parapharyngeal tissues but no evidence of any abscess, cellulitis, or neck masses or lymphadenopathy. The patient was subsequently admitted to the hospital and was placed on intravenous antibiotics, namely Unasyn 3 g IV daily. In addition to this, she was initially started on Decadron but after a couple doses she felt that it made her blood pressure drop and therefore she refused any further medication. The patient admits to having severe anxiety issues and also is prone to panic attacks. She states that she is concerned that she is losing weight because she is not eating. When questioned whether she is able to swallow, she says liquids but not particularly solids and she is afraid to swallow anything because she feels it might get stuck in her throat. I personally tried to reassure her that the food would not get stuck in her throat and would eventually go down. I also advised that if he goes into a windpipe, then that will cause her to cough. She has been taking a lot of cough drops and using medications such as Chloraseptic which I advised her immediately to stop because these substances are quite irritating to the pharyngeal tissues as well as to the vocal cords. In addition to this, while in the room I noted that the patient constantly was feeling her neck and I advised her to stop that because certainly that can cause areas to become quite tender. The patient is a smoker and smokes approximately 1/2 to 1 pack of cigarettes per day. She quit as of yesterday, 12/12/2019. She admits to having a cancer phobia and is concerned that she might possibly have throat cancer. I advised her that if she is truly concerned about throat cancer that she should not smoke. Majority of throat cancer is caused by smoking, especially in women. She was grateful for this information. I also recommended that she try using the patch or using the E cigarette to quit smoking and advised that it will probably take her at least a year of trying to quit smoking before she finally quit for good. I emphasized to her that is only if she is serious by quitting that will she ever be able to quit smoking. Certainly, using the patch or the E cigarette will give her nicotine into her system and allow her to resist smoking, although certainly there are other psychological triggers with regard to holding a cigarette in a smoker's hand. She denies any substance abuse or alcohol abuse. PAST MEDICAL HISTORY: Reveals that she has no allergies other than CODEINE. MEDICATIONS: Her only current medication is Xanax 0.25 mg which she takes on a p.r.n. basis at home for anxiety and panic attacks. REVIEW OF SYSTEMS: The review of systems is essentially unremarkable. PHYSICAL EXAMINATION: This patient is a 39-year-old, very anxious, very concerned and very worried about cancer patient who is alert and cooperative. I advised her that I had reviewed her CT scan and there did not appear to be any evidence that would suggest any type of cancer in her neck at this time. She was grateful for this information. HEENT: The patient is normocephalic. Tympanic membranes are normal. Pupils are equal, round, react to light and accommodation. Extraocular movements within normal limits. Intranasal examination reveals moderate to severe septal deviation with compensatory hypertrophy of the inferior turbinates and a moderate amount of clear mucus on the mucous membranes and draining down the posterior pharynx. Examination of oropharynx reveals the posterior pharyngeal tissues appear to be normal. No evidence of any significant swelling or asymmetry is noted. The patient denies any pain on swallowing. Deep palpation of the neck fails to reveal any significant lymphadenopathy on either side of the neck nor is there any tenderness at the back of the neck. Cranial nerves 2 through 12 and remainder of the head and neck exam is unremarkable. CHEST/CARDIOVASCULAR: Both lung currie are clear although left lungs are somewhat distant which would coincide with the emphysematous changes on her CT scan. There is no evidence of any rales, rhonchi or wheezes. ABDOMEN: There is no evidence of any masses, megaly or tenderness. The abdomen is soft. SKIN: Unremarkable. The remainder of physical exam is essentially within normal limits. ASSESSMENT: Pharyngitis with parapharyngeal edema, no evidence of abscess, cellulitis or phlegmon noted on the CT scan. PLAN: I spent approximately 45 minutes to an hour with this patient, reassuring her and trying to calm her fears about cancer and again emphasizing to her that if she is serous about her concerns about cancer then she will stop smoking. I advised her that in general women who do not smoke as well as anyone else who does not smoke has less chance of getting cancer. Although this chance is not 0, it is certainly less than 1 or 2% if even that. Recently we have discovered that some patients who never smoked will develop cancers and these have in many cases been associated with the herpes 1 virus. I recommend the patient try the E cigarette or the nicotine patch to help her quit and again advised it will take at least a year to quit smoking completely. I recommend that she be discharged at any time including today or you may keep her overnight for an additional dose of the IV antibiotic. She was adamant about not wanting to take any type of steroids even though I advised her that this would reduce the swelling in her throat. I spent a significant amount of time reassuring the patient that her illness was not life threatening. She could be discharged on Augmentin 875 b.i.d. for an additional 7 days and I think that would be the adequate. I advised her that because she has refused steroids that it will take more time for the swelling to gradually go down and that she should gradually advance her diet at home as tolerated. She can follow up with the primary care physician and if necessary, she can be referred to see Dr. Andrade because my office does not except her [facility] insurance. I want to take this opportunity to thank you for allowing me to assist in the care of your patient. If I could be of any further assistance, please feel free to call my office. Again, in my opinion, the patient can be discharged today. MMODL / JERADN: [id number] /
[2019-12-13] MEDS ORDERED: FAMOTIDINE 20 MG/2 ML VIAL IV SCH (21:00)
== END 2019-12-13 16:26 | disposition home or self-care (01) ==
LOC: EC 10:46 → 1SOBS 13:48
PROVIDERS: ADMIT Internal Medicine; ATTEND Internal Medicine
DX: J02.9 Acute pharyngitis, unspecified (principal); Z91.19 Patient's noncompliance with other medical treatment and regimen; F17.210 Nicotine dependence, cigarettes, uncomplicated; F41.0 Panic disorder [episodic paroxysmal anxiety]; Z88.8 Allergy status to other drugs, medicaments and biological substances; Z88.5 Allergy status to narcotic agent; Z79.899 Other long term (current) drug therapy; Z79.52 Long term (current) use of systemic steroids; Z79.1 Long term (current) use of non-steroidal anti-inflammatories (NSAID)
CPT/HCPCS: 96366 ×2; 96376 ×2; 96361; 96365; 96375; 99285; 36415; 80053; 85025; 86308; 81025; 87040; 87081; 87430; 87502; 70491; G0378 ×2; J1100 ×2; J0295 ×2; Q9967

== ENCOUNTER 2019-12-15 07:16 | Emergency (ER) | payer BC ==
[2019-12-15 07:32] VITALS: TEMP 98.8
[2019-12-15] MEDS ORDERED: MORPHINE SULFATE 4 MG/ML SYRINGE IV STA (08:05)
[2019-12-15] MEDS ORDERED: PANTOPRAZOLE 40 MG/10 ML VIAL IVP STA (08:05)
[2019-12-15] MEDS ORDERED: ONDANSETRON 4 MG/2 ML VIAL IVP STA (08:05)
[2019-12-15] MEDS ORDERED: SODIUM CHLORIDE 0.9% 1,000 ML IV STA ×2 (08:05)
[2019-12-15] MEDS ORDERED: KETOROLAC 30 MG/ML 1 ML VIAL IVP STA (08:05)
--- NOTE | 2019-12-15 08:09 | ED ---
Abdominal Pain HPI - General Chief Complaint: Abdominal Pain Stated Complaint: Rt Side Abdominal Pain Time Seen by Provider: 12/15/19 07:44 Source: patient, RN notes reviewed, old records reviewed Mode of arrival: ambulatory Limitations: no limitations - History of Present Illness Initial Comments: This patient's a 31-year-old female who presents emergency Department chief complaint of right lower quadrant abdominal pain starting last night into today. Patient reports that she's been recently evaluated for pharyngitis, has been on multiple rounds of antibiotics. She seemed to ENT specialist whom to diagnose her with pharyngitis, no tonsillar abscess. She reports that she's been having pain and trouble swallowing that she's been losing weight. Patient states that she did have an ensure yesterday, he reports that afterwards she started to vo emma. - Related Data Home Medications Medication Instructions Recorded Confirmed ALPRAZolam [Xanax] 0.25 mg PO DAILY PRN 08/04/19 12/12/19 Ibuprofen [Advil] 400 mg PO Q8HR PRN 12/12/19 12/12/19 Keith's Solution 5 ml MUCOUS MEM TID PRN 12/12/19 12/12/19 L.acidoph,Paracasei, B.lactis 1 cap PO DAILY 12/12/19 12/12/19 [Probiotic] Loratadine [Claritin] 10 mg PO DAILY 12/12/19 12/12/19 Mag Hydrox/Aluminum Hyd/Simeth 10 ml PO Q4H PRN 12/12/19 12/12/19 [Mylanta Maximum Strength Liq] Previous Rx's Medication Instructions Recorded Amoxic-Pot Clav 875-125Mg 1 each PO Q12HR 7 Days #14 tab 12/13/19 [Augmentin 875-125] Ondansetron [Zofran ODT] 4 mg PO Q8HR #12 tab 12/15/19 Allergies Allergy/AdvReac Type Severity Reaction Status Date / Time codeine Allergy Rash/Hives Verified 12/15/19 07:32 cefdinir AdvReac Diarrhea Verified 12/15/19 07:32 Review of Systems ROS Statement: Those systems with pertinent positive or pertinent negative responses have been documented in the HPI. ROS Other: All systems not noted in ROS Statement are negative. Past Medical History Past Medical History: No Reported History History of Any Multi-Drug Resistant Organisms: None Reported Past Surgical History: Adenoidectomy, Ear Surgery, Orthopedic Surgery, Tonsillectomy Additional Past Surgical History / Comment(s): R foot, R hand, nose surgery Past Anesthesia/Blood Transfusion Reactions: No Reported Reaction Additional Past Anesthesia/Blood Transfusion Reaction / Comment(s): patient has never had a blood transfusion Past Psychological History: Anxiety, Panic Disorder Smoking Status: Current every day smoker Past Alcohol Use History: Occasional Past Drug Use History: None Reported - Past Family History Father Family Medical History: Myocardial Infarction ([place]) Mother Family Medical History: Congestive Heart Failure (CHF), Myocardial Infarction ([place]) General Exam - General Exam Comments Initial Comments: This is a 39-year-old female. Alert and oriented 3. Patient is somewhat anxious. Mild to moderate discomfort. Limitations: no limitations General appearance: alert, in no apparent distress Head exam: Present: atraumatic, normocephalic, normal inspection Eye exam: Present: normal appearance, PERRL, EOMI. Absent: scleral icterus, conjunctival injection, periorbital swelling ENT exam: Present: normal exam, mucous membranes moist Neck exam: Present: normal inspection. Absent: tenderness, meningismus, lymphadenopathy Respiratory exam: Present: normal lung sounds bilaterally. Absent: respiratory distress, wheezes, rales, rhonchi, stridor Cardiovascular Exam: Present: regular rate, normal rhythm, normal heart sounds. Absent: systolic murmur, diastolic murmur, rubs, gallop, clicks GI/Abdominal exam: Present: soft, normal bowel sounds. Absent: distended, tenderness, guarding, rebound, rigid Extremities exam: Present: normal inspection Back exam: Present: normal inspection Neurological exam: Present: alert Psychiatric exam: Present: normal affect, normal mood Course Vital Signs 12/15/19 12/15/19 12/15/19 07:30 09:00 10:16 Temperature 98.8 F Pulse Rate 89 64 56 L Respiratory 18 16 Rate Blood Pressure 119/75 110/80 O2 Sat by Pulse 99 97 96 Oximetry 12/15/19 10:25 Temperature Pulse Rate 67 Respiratory 18 Rate Blood Pressure 114/71 O2 Sat by Pulse 97 Oximetry Medical Decision Making - Medical Decision Making 39 year old female with CC of R abdominal pain. Patient labs are reviewed and unremarkable. Patient has tenderness over RLQ. PAtient CT scan shows signs of recently ruptured ovarian follicle. Discussed this is the source of patient pain. Advised OB follow up and return parameters discussed. - Lab Data Result diagrams: 12/15/19 08:30 12/15/19 08:30 Lab Results 12/15/19 12/15/19 12/15/19 Range/Units 08:21 08:30 08:30 WBC 9.1 (3.8-10.6) k/uL RBC 4.02 (3.80-5.40) m/uL Hgb 13.1 (11.4-16.0) gm/dL Hct 38.8 (34.0-46.0) % MCV 96.6 (80.0-100.0) fL MCH 32.7 (25.0-35.0) pg MCHC 33.9 (31.0-37.0) g/dL RDW 11.9 (11.5-15.5) % Plt Count 150 (150-450) k/uL Neutrophils % 72 % Lymphocytes % 23 % Monocytes % 3 % Eosinophils % 1 % Basophils % 0 % Neutrophils # 6.5 (1.3-7.7) k/uL Lymphocytes # 2.1 (1.0-4.8) k/uL Monocytes # 0.3 (0-1.0) k/uL Eosinophils # 0.0 (0-0.7) k/uL Basophils # 0.0 (0-0.2) k/uL PT (9.0-12.0) sec INR (<1.2) APTT (22.0-30.0) sec Sodium 141 (137-145) mmol/L Potassium 4.1 (3.5-5.1) mmol/L Chloride 108 H (98-107) mmol/L Carbon Dioxide 27 (22-30) mmol/L Anion Gap 6 mmol/L BUN 9 (7-17) mg/dL Creatinine 0.62 (0.52-1.04) mg/dL Est GFR (CKD-EPI)AfAm >90 (>60 ml/min/1.73 sqM) Est GFR (CKD-EPI)NonAf >90 (>60 ml/min/1.73 sqM) Glucose 97 (74-99) mg/dL Calcium 8.7 (8.4-10.2) mg/dL Total Bilirubin 1.0 (0.2-1.3) mg/dL AST 17 (14-36) U/L ALT 10 (4-34) U/L Alkaline Phosphatase 43 (38-126) U/L Total Protein 6.5 (6.3-8.2) g/dL Albumin 3.8 (3.5-5.0) g/dL Amylase 57 (30-110) U/L Lipase 156 (23-300) U/L Urine Color Light Yellow Urine Appearance Cloudy H (Clear) Urine pH 7.5 (5.0-8.0) Ur Specific [place] 1.005 (1.001-1.035) Urine Protein Negative (Negative) Urine Glucose (UA) Negative (Negative) Urine Ketones Negative (Negative) Urine Blood Negative (Negative) Urine Nitrite Negative (Negative) Urine Bilirubin Negative (Negative) Urine Urobilinogen <2.0 (<2.0) mg/dL Ur Leukocyte Esterase Moderate H (Negative) Urine RBC 4 (0-5) /hpf Urine WBC 13 H (0-5) /hpf Ur Squamous Epith Cells 18 H (0-4) /hpf Amorphous Sediment Rare H (None) /hpf Urine Bacteria Few H (None) /hpf Urine Mucus Rare H (None) /hpf 12/15/19 Range/Units 08:30 WBC (3.8-10.6) k/uL RBC (3.80-5.40) m/uL Hgb (11.4-16.0) gm/dL Hct (34.0-46.0) % MCV (80.0-100.0) fL MCH (25.0-35.0) pg MCHC (31.0-37.0) g/dL RDW (11.5-15.5) % Plt Count (150-450) k/uL Neutrophils % % Lymphocytes % % Monocytes % % Eosinophils % % Basophils % % Neutrophils # (1.3-7.7) k/uL Lymphocytes # (1.0-4.8) k/uL Monocytes # (0-1.0) k/uL Eosinophils # (0-0.7) k/uL Basophils # (0-0.2) k/uL PT 11.1 (9.0-12.0) sec INR 1.1 (<1.2) APTT 22.3 (22.0-30.0) sec Sodium (137-145) mmol/L Potassium (3.5-5.1) mmol/L Chloride (98-107) mmol/L Carbon Dioxide (22-30) mmol/L Anion Gap mmol/L BUN (7-17) mg/dL Creatinine (0.52-1.04) mg/dL Est GFR (CKD-EPI)AfAm (>60 ml/min/1.73 sqM) Est GFR (CKD-EPI)NonAf (>60 ml/min/1.73 sqM) Glucose (74-99) mg/dL Calcium (8.4-10.2) mg/dL Total Bilirubin (0.2-1.3) mg/dL AST (14-36) U/L ALT (4-34) U/L Alkaline Phosphatase (38-126) U/L Total Protein (6.3-8.2) g/dL Albumin (3.5-5.0) g/dL Amylase (30-110) U/L Lipase (23-300) U/L Urine Color Urine Appearance (Clear) Urine pH (5.0-8.0) Ur Specific [place] (1.001-1.035) Urine Protein (Negative) Urine Glucose (UA) (Negative) Urine Ketones (Negative) Urine Blood (Negative) Urine Nitrite (Negative) Urine Bilirubin (Negative) Urine Urobilinogen (<2.0) mg/dL Ur Leukocyte Esterase (Negative) Urine RBC (0-5) /hpf Urine WBC (0-5) /hpf Ur Squamous Epith Cells (0-4) /hpf Amorphous Sediment (None) /hpf Urine Bacteria (None) /hpf Urine Mucus (None) /hpf - Radiology Data Radiology results: report reviewed a 1.4 cm enhancing crenelated striation within the R ovary with adjacent right adnexal free fluid. Finding represents a ruptured ovarian follicle. Normal appendix. Bulky uterus may be physiologic non emergent follow up pelvic us could be further evaluated if indicated. Disposition Clinical Impression: Ovarian cyst Disposition: HOME SELF-CARE Condition: Good Instructions (If sedation given, give patient instructions): Ovarian Cyst (ED), Ruptured Ovarian Cyst (ED) Additional Instructions: Please use medication as discussed, using motrin and tylenol for pain. Please follow up with family doctor if symptoms have not improved over the next two days. Please return to the emergency room if your symptoms increase or worsen or for any other concerns. Patient advised to take medication as prescribed. Recommend follow-up TELEPHONE STERILIZER. Complete her antibiotics as previously prescribed as well. Rest, remain hydrated. Encourage fluid intake. Prescriptions: Ondansetron [Zofran ODT] 4 mg PO Q8HR #12 tab Is patient prescribed a controlled substance at d/c from ED?: No Referrals: Jake Carter MD [Primary Care Provider] - 1-2 days Ivonne Kay DO [Doctor of Osteopathic Medicine] - 1-2 days Time of Disposition: 10:14
[2019-12-15 08:43] LABS: Amorphous Sediment,Urine Rare /hpf; Appearance,Urine Cloudy (Clear); Bacteria,Urine Few /hpf; Bilirubin,Urine Negative (Negative); Blood,Urine Negative (Negative); Color,Urine Light Yellow; Glucose,Urine (UA) Negative (Negative); Ketones,Urine Negative (Negative); Leukocyte Esterase,Urine Moderate (Negative); Mucus,Urine Rare /hpf; Nitrite,Urine Negative (Negative); PH, Urine 7.5 (5.0-8.0); Protein,Urine Negative (Negative); RBC,Urine 4 /hpf (0-5); Specific Gravity,Urine 1.005 (1.001-1.035); Squamous Epithelial Cell,Urine 18 /hpf (0-4); Urobilinogen,Urine <2.0 mg/dL (<2.0); WBC,Urine 13 /hpf (0-5)
[2019-12-15 09:07] LABS: ALT 10 U/L (4-34); AST 17 U/L (14-36); African American GFR (CKD) >90 (>60 ml/min/1.73 sqM); Albumin 3.8 g/dL (3.5-5.0); Alkaline Phosphatase 43 U/L (38-126); Amylase 57 U/L (30-110); Anion Gap 6 mmol/L; Blood Urea Nitrogen 9 mg/dL (7-17); Calcium 8.7 mg/dL (8.4-10.2); Carbon Dioxide 27 mmol/L (22-30); Chloride 108 mmol/L (98-107); Glucose 97 mg/dL (74-99); Non-African American GFR(CKD) >90 (>60 ml/min/1.73 sqM); Potassium 4.1 mmol/L (3.5-5.1); Sodium 141 mmol/L (137-145); Total Protein 6.5 g/dL (6.3-8.2)
[2019-12-15 09:11] LABS: INR 1.1 (<1.2); Partial Thromboplastin Time 22.3 sec (22.0-30.0); Prothrombin Time 11.1 sec (9.0-12.0)
--- NOTE | 2019-12-15 09:11 | CT ---
EXAMINATION TYPE: CT abdomen pelvis w con DATE OF EXAM: 12/15/2019 COMPARISON: NONE HISTORY: 39-year-old female Right lower quadrant pain TECHNIQUE: Contiguous axial scanning of the abdomen and pelvis following administration of 100 ml Iso brendon 300 IV contrast. Delayed images through the kidneys and coronal/sagittal reconstructions perform ed. CT DLP: 522 mGycm Automated exposure control for dose reduction was used. FINDINGS: LUNG BASES: No significant abnormality is appreciated. LIVER/GB: Liver mildly enlarged at 18.6 cm. No focal lesion. Gallbladder within normal limits. No jewel iary ductal dilatation. PANCREAS: No significant abnormality is seen. SPLEEN: Borderline size at 13.5 cm measured on coronal series. ADRENALS: No significant abnormality is seen. KIDNEYS: No significant abnormality is seen. REPRODUCTIVE ORGANS: Small amount of right adnexal free fluid. There is a crenulated peripherally enh ancing 1.4 cm lesion within the right ovary. Both ovaries are visualized. Uterus is somewhat bulky ap pearance, possibly physiologic measuring 9.2 cm long by 6.0 cm AP by 7.3 cm wide. BOWEL: Normal appendix. Only mild scattered stool. No dilated small bowel, free fluid, or free air. Lymph nodes: No suspicious lymphadenopathy seen. Bones: No osseous destructive process. IMPRESSION: 1. A 1.4 CM PERIPHERALLY ENHANCING, CRENULATED STRUCTURE WITHIN THE RIGHT OVARY WITH MILD ADJACENT RI GHT ADNEXAL FREE FLUID. FINDING LIKELY REPRESENTS A RECENTLY RUPTURED FOLLICLE. 2. NORMAL APPENDIX. 3. BULKY UTERUS MAY BE PHYSIOLOGIC. NONEMERGENT FOLLOW-UP PELVIC ULTRASOUND COULD FURTHER EVALUATE IF INDICATED.
[2019-12-15 09:13] LABS: Basophils % (A) 0 %; Eosinophils % (A) 1 %; HCT 38.8 % (34.0-46.0); HGB 13.1 gm/dL (11.4-16.0); Lymphocytes # (A) 2.1 k/uL (1.0-4.8); Lymphocytes % (A) 23 %; MCH 32.7 pg (25.0-35.0); MCHC 33.9 g/dL (31.0-37.0); MCV 96.6 fL (80.0-100.0); Mean Platelet Volume 7.7; Monocytes # (A) 0.3 k/uL (0-1.0); Monocytes % (A) 3 %; Neutrophils # (A) 6.5 k/uL (1.3-7.7); Neutrophils % (A) 72 %; Platelet Count 150 k/uL (150-450); RBC 4.02 m/uL (3.80-5.40); RDW 11.9 % (11.5-15.5); WBC 9.1 k/uL (3.8-10.6)
[2019-12-15] MEDS ORDERED: traMADol 50 MG STARTER PACK 3 TAB BTL PO STA (10:16)
[2019-12-15 10:28] VITALS: BP 114/71; PULSE 67; RESP 18
== END 2019-12-15 10:30 | disposition home or self-care (01) ==
LOC: EC 07:16
DX: N83.201 Unspecified ovarian cyst, right side (principal); F41.0 Panic disorder [episodic paroxysmal anxiety]; F17.200 Nicotine dependence, unspecified, uncomplicated; Z79.899 Other long term (current) drug therapy; Z88.1 Allergy status to other antibiotic agents; Z88.5 Allergy status to narcotic agent
CPT/HCPCS: 99284 ×2; 96374 ×2; 96375 ×4; 96361 ×3; 36415; 80053; 82150; 83690; 85025; 85610; 85730; 81001; 87086; 74177; J2270; J2405; J1885; C9113; Q9967

== ENCOUNTER 2020-01-20 10:41 | Emergency (ER) | payer BC ==
[2020-01-20 11:12] VITALS: BP 112/79; PULSE 89; RESP 16; TEMP 98.3
--- NOTE | 2020-01-20 11:32 | ED ---
ENT HPI - General Chief complaint: ENT Stated complaint: ENT Time Seen by Provider: 01/20/20 11:15 Source: patient, RN notes reviewed Mode of arrival: ambulatory Limitations: no limitations - History of Present Illness Initial comments: 39-year-old female presents emergency Department chief complaint of right ear pain, pressure. Patient states that this has been going on for the last few days. Patient states she has fullness in her right ear, dizziness with movement. Patient states that she also has a sore or an ulcer in her throat. Patient was admitted in November for similar complaints. Patient was diagnosed with viral pharyngitis. Patient follow-up with her ENT who diagnosed her with ulcer. She states that it seems to come back. Patient denies any fevers or chills no current headache patient is a daily smoker. - Related Data Home Medications Medication Instructions Recorded Confirmed ALPRAZolam [Xanax] 0.25 mg PO DAILY PRN 08/04/19 12/12/19 Ibuprofen [Advil] 400 mg PO Q8HR PRN 12/12/19 12/12/19 Keith's Solution 5 ml MUCOUS MEM TID PRN 12/12/19 12/12/19 L.acidoph,Paracasei, B.lactis 1 cap PO DAILY 12/12/19 12/12/19 [Probiotic] Loratadine [Claritin] 10 mg PO DAILY 12/12/19 12/12/19 Mag Hydrox/Aluminum Hyd/Simeth 10 ml PO Q4H PRN 12/12/19 12/12/19 [Mylanta Maximum Strength Liq] Previous Rx's Medication Instructions Recorded Amoxic-Pot Clav 875-125Mg 1 each PO Q12HR 7 Days #14 tab 12/13/19 [Augmentin 875-125] Ondansetron [Zofran ODT] 4 mg PO Q8HR #12 tab 12/15/19 Fluticasone Nasal [place] [Flonase 2 spr EA NOSTRIL DAILY #1 bottle 01/20/20 Nasal [place]] Meclizine [Antivert] 25 mg PO TID PRN #15 tab 01/20/20 Allergies Allergy/AdvReac Type Severity Reaction Status Date / Time codeine Allergy Rash/Hives Verified 01/20/20 11:12 cefdinir AdvReac Diarrhea Verified 01/20/20 11:12 Review of Systems ROS Statement: Those systems with pertinent positive or pertinent negative responses have been documented in the HPI. ROS Other: All systems not noted in ROS Statement are negative. Past Medical History Past Medical History: No Reported History History of Any Multi-Drug Resistant Organisms: None Reported Past Surgical History: Adenoidectomy, Ear Surgery, Orthopedic Surgery, Tonsillectomy Additional Past Surgical History / Comment(s): R foot, R hand, nose surgery Past Anesthesia/Blood Transfusion Reactions: No Reported Reaction Additional Past Anesthesia/Blood Transfusion Reaction / Comment(s): patient has never had a blood transfusion Past Psychological History: Anxiety, Panic Disorder Smoking Status: Current every day smoker Past Alcohol Use History: Occasional Past Drug Use History: None Reported - Past Family History Father Family Medical History: Myocardial Infarction ([place]) Mother Family Medical History: Congestive Heart Failure ([place]), Myocardial Infarction ([place]) General Exam Limitations: no limitations General appearance: alert, in no apparent distress Head exam: Present: atraumatic, normocephalic, normal inspection Eye exam: Present: normal appearance, PERRL, EOMI. Absent: scleral icterus, conjunctival injection, periorbital swelling ENT exam: Present: mucous membranes moist, normal external ear exam. Absent: normal oropharynx (There is an amp was also noted on the right tonsillar pillar), TM's normal bilaterally (Mild fluid noted) Neck exam: Present: normal inspection, full ROM. Absent: tenderness, meningismus, lymphadenopathy Respiratory exam: Present: normal lung sounds bilaterally. Absent: respiratory distress, wheezes, rales, rhonchi, stridor Cardiovascular Exam: Present: regular rate, normal rhythm, normal heart sounds. Absent: systolic murmur, diastolic murmur, rubs, gallop, clicks Course Vital Signs 01/20/20 11:09 Temperature 98.3 F Pulse Rate 89 Respiratory 16 Rate Blood Pressure 112/79 O2 Sat by Pulse 98 Oximetry Medical Decision Making - Medical Decision Making Patient has a stationary tube dysfunction. Patient be placed on Flonase, given Antivert for dizziness. Patient has an aphthous ulcer she is advised to use [id number] benzocaine products. Patient will return for any worsening symptoms or follow up with ENT. Disposition Clinical Impression: Eustachian tube dysfunction, Aphthous ulcer of mouth Disposition: HOME SELF-CARE Condition: Stable Instructions (If sedation given, give patient instructions): Canker Sores (ED) Additional Instructions: Please return to the Emergency Department if symptoms worsen or any other concerns. Prescriptions: Meclizine [Antivert] 25 mg PO TID PRN #15 tab PRN Reason: Vertigo Fluticasone Nasal [place] [Flonase Nasal [place]] 2 spr EA NOSTRIL DAILY #1 bottle Is patient prescribed a controlled substance at d/c from ED?: No Referrals: Jake Carter MD [Primary Care Provider] - 1-2 days Time of Disposition: 11:32
== END 2020-01-20 11:43 | disposition home or self-care (01) ==
LOC: EC 10:41
DX: K12.0 Recurrent oral aphthae (principal); H69.81 Other specified disorders of Eustachian tube, right ear; R42 Dizziness and giddiness; F41.9 Anxiety disorder, unspecified; F41.0 Panic disorder [episodic paroxysmal anxiety]; F17.200 Nicotine dependence, unspecified, uncomplicated; Z79.899 Other long term (current) drug therapy; Z88.5 Allergy status to narcotic agent; Z88.1 Allergy status to other antibiotic agents; Z98.890 Other specified postprocedural states
CPT/HCPCS: 99282

== ENCOUNTER 2020-01-31 07:48 | Inpatient (IN) | payer BC ==
--- NOTE | 2020-01-31 08:21 | ED ---
General Adult HPI - General Chief complaint: Psychiatric Symptoms Stated complaint: panic attacks/not sleeping Time Seen by Provider: 01/31/20 07:58 Source: patient, family, RN notes reviewed Mode of arrival: ambulatory Limitations: no limitations - History of Present Illness Initial comments: Patient is a pleasant 39-year-old female presenting to the emergency department secondary to insomnia and anxiety. Symptoms have been worse over the past couple of months, worse the past 3 weeks. Patient is having frequent panic attacks and anxiety. Patient is not sleeping well. Patient was previously and BuSpar however only taking half the dose. Patient tried it again as well as Effexor however did not like the way that they made her feel and stopped taking them. Patient does take Xanax sometimes. No physical complaints at this time. Occasional alcohol. No street drug use. - Related Data Home Medications Medication Instructions Recorded Confirmed ALPRAZolam [Xanax] 0.25 mg PO BID 08/04/19 01/31/20 Ibuprofen [Advil] 400 mg PO Q8HR PRN 12/12/19 01/31/20 Allergies Allergy/AdvReac Type Severity Reaction Status Date / Time codeine Allergy Rash/Hives Verified 01/31/20 14:38 cefdinir AdvReac Diarrhea Verified 01/31/20 14:38 STEROIDS AdvReac Confusion Uncoded 01/31/20 14:38 Review of Systems ROS Statement: Those systems with pertinent positive or pertinent negative responses have been documented in the HPI. ROS Other: All systems not noted in ROS Statement are negative. Constitutional: Denies: fever Eyes: Denies: eye pain ENT: Denies: ear pain Respiratory: Denies: cough Cardiovascular: Denies: chest pain Endocrine: Reports: fatigue Gastrointestinal: Denies: abdominal pain, vomiting Genitourinary: Denies: dysuria Musculoskeletal: Denies: back pain Skin: Denies: rash Psychiatric: Reports: anxiety Past Medical History Past Medical History: No Reported History History of Any Multi-Drug Resistant Organisms: None Reported Past Surgical History: Adenoidectomy, Ear Surgery, Orthopedic Surgery, Tonsillectomy Additional Past Surgical History / Comment(s): R foot, R hand, nose surgery Past Anesthesia/Blood Transfusion Reactions: No Reported Reaction Additional Past Anesthesia/Blood Transfusion Reaction / Comment(s): patient has never had a blood transfusion Past Psychological History: Anxiety, Panic Disorder Smoking Status: Current every day smoker Past Alcohol Use History: Occasional Past Drug Use History: None Reported - Past Family History Father Family Medical History: Myocardial Infarction ([place]) Mother Family Medical History: Congestive Heart Failure (CH[place]), Myocardial Infarction ([place]) General Exam Limitations: no limitations General appearance: alert, in no apparent distress Head exam: Present: normocephalic Eye exam: Present: normal appearance Neck exam: Present: normal inspection Respiratory exam: Present: normal lung sounds bilaterally Cardiovascular Exam: Present: regular rate, normal rhythm GI/Abdominal exam: Present: soft. Absent: tenderness Extremities exam: Present: normal inspection Neurological exam: Present: alert Psychiatric exam: Present: anxious Skin exam: Present: normal color Course Vital Signs 01/31/20 01/31/20 07:50 14:09 Temperature 98 F 97.9 F Pulse Rate 110 H 98 Respiratory 18 19 Rate Blood Pressure 128/81 133/77 O2 Sat by Pulse 100 99 Oximetry - Reevaluation(s) Reevaluation #1: 01/31/20 08:20 Discussion with patient and family and they would like to be evaluated for possible psychiatric hospitalization Disposition Clinical Impression: Depression, Acute anxiety Disposition: TRANSFER TO PSYCH HOSP/UNIT
[2020-01-31] MEDS ORDERED: MAG HYDROX/AL HYDROX/SIMETH 30 ML CUP PO PRN (13:24)
[2020-01-31] MEDS ORDERED: MAGNESIUM HYDROXIDE 2,400 MG/10 ML CUP PO PRN (13:24)
[2020-01-31] MEDS ORDERED: ZIPRASIDONE 20 MG VIAL IM PRN (13:24)
[2020-01-31] MEDS: NICOTINE 21MG/24HR PATCH TRANSDERM SCH (16:26)
--- NOTE | 2020-01-31 22:45 | P.MDCNMH ---
History of Present Illness H&P Date: 01/31/20 Chief Complaint: Anxiety Patient is a 39-year-old female with a known history of anxiety, panic disorder, currently ill day smoker and recent history of pharyngitis and pharyngeal wall thickening presents to ER due to anxiety and insomnia. Patient says that she has been having increased anxiety for the past 2 months and worsened last 3 weeks. Patient was previously admitted to the hospital due to right-sided throat pain and difficulty swallowing. Patient was evaluated by ENT at the time. CT of the soft neck was done showed mild generalized swelling in the first parapharyngeal tissues. No evidence of retropharyngeal abscess. Patient was sent home with ENT follow-up. Patient was on antibiotic course. Patient says that she has been very anxious about her not being able to swallow and complaints of she did show this morning when she was eating burger. No complaints of fever or chills. Patient is also saying that she is anxious that her throat pain is not improving and medications are not helping. Patient is not sleeping well. Patient was previously and BuSpar however only taking half the dose. Patient tried it again as well as Effexor however did not like the way that they made her feel and stopped taking them. Patient does take Xanax sometimes. Otherwise patient does smoke an daily basis. Review of Systems Constitutional: Patient denies any fever or chills . No generalized weakness or weight loss. Abdomen: Patient denied nausea vomiting and diarrhea and abdominal pain. Complaints of difficulty swallowing. Cardiovascular: Patient denies any chest pain or short of breath no palpitations . Respiratory: patient denied any cough is from production. No shortness of breath Neurologic: Patient denied any numbness or tingling headache. Musculoskeletal: Patient denies any complaints of joint swelling or deformity. Skin: Negative Psychiatric: Anxious Endocrine: No heat or cold intolerance. No recent weight gain. Genitourinary: No dysuria or hematuria. All other 14 point ROS negative except the above Past Medical History Past Medical History: No Reported History History of Any Multi-Drug Resistant Organisms: None Reported Past Surgical History: Adenoidectomy, Ear Surgery, Orthopedic Surgery, Tonsillectomy Additional Past Surgical History / Comment(s): R foot, R hand, nose surgery Past Anesthesia/Blood Transfusion Reactions: No Reported Reaction Additional Past Anesthesia/Blood Transfusion Reaction / Comment(s): patient has never had a blood transfusion Past Psychological History: Anxiety, Panic Disorder Smoking Status: Current every day smoker Past Alcohol Use History: Occasional Past Drug Use History: None Reported - Past Family History Father Family Medical History: Myocardial Infarction ([place]) Mother Family Medical History: Congestive Heart Failure ([place]), Myocardial Infarction ([place]) Medications and Allergies Home Medications Medication Instructions Recorded Confirmed Type ALPRAZolam [Xanax] 0.25 mg PO BID 08/04/19 01/31/20 History Ibuprofen [Advil] 400 mg PO Q8HR PRN 12/12/19 01/31/20 History Allergies Allergy/AdvReac Type Severity Reaction Status Date / Time codeine Allergy Rash/Hives Verified 01/31/20 14:38 cefdinir AdvReac Diarrhea Verified 01/31/20 14:38 STEROIDS AdvReac Confusion Uncoded 01/31/20 14:38 Physical Exam Vitals: Vital Signs Temp Pulse Resp BP Pulse Ox 01/31/20 14:09 97.9 F 98 19 133/77 99 01/31/20 07:50 98 F 110 H 18 128/81 100 Intake and Output 01/30/20 01/31/20 01/31/20 22:59 06:59 14:59 Other: Weight 52.617 kg Cranial Nerve Examination - Cranial Nerves Cranial Nerve I- Olfactory: Intact Cranial Nerve II- Optic: Intact Cranial Nerve III- Oculomotor: Intact Cranial Nerve IV- Trochlear: Intact Cranial Nerve V- Trigeminal: Intact Cranial Nerve - Abducens: Intact Cranial Nerve VII- Facial: Intact Cranial Nerve VIII- Auditory: Intact Cranial Nerve IX- Glossopharyngeal: Intact Cranial Nerve X- Vagus: Intact Cranial Nerve XI- Accessory: Intact Cranial Nerve XII- Hypoglossal: Intact Assessment and Plan Assessment: Worsening anxiety and panic episodes. Recent history of swelling of the parapharyngeal tissues suspected due to viral illness Difficulty swallowing Ongoing nicotine addiction Plan: Patient will be continued on current psychiatric medications. Patient had previous CT of the soft tissue neck showed swelling of the parapharyngeal tissues on 12/12/19. Patient was seen by ENT but no abnormality was noted. Patient is still complaining of difficulty swallowing. Will get barium swallow study for further evaluation. We will continue to follow closely. Follow CBC and BMP and UDS. Thank you for your consult. Time with Patient: Greater than 30
[2020-02-01] MEDS: LORazepam 1 MG TAB PO PRN ×2 (02:02→21:08)
[2020-02-01 07:30] LABS: Glucose,Whole Blood 98 mg/dL (75-99)
[2020-02-01] MEDS ORDERED: hydrOXYzine PAMOATE 25 MG CAP PO PRN (08:51)
[2020-02-01] MEDS ORDERED: NICOTINE 21MG/24HR PATCH TRANSDERM SCH (09:00)
--- NOTE | 2020-02-01 12:19 | FL ---
EXAMINATION TYPE: FL barium swallow w video DATE OF EXAM: 02/01/2020 MODIFIED SWALLOW / DEGLUTITION STUDY CLINICAL HISTORY: Dysphagia. TECHNIQUE: Deglutition study is performed utilizing thin liquid barium, honey and nectar thick liqui d barium, and barium thick pudding. 1 minute and 2 seconds of fluoroscopy time was utilized with 0 fl uoroscopic images saved as the examination was video recorded. COMPARISON: None. FINDINGS: The oral and pharyngeal phases show satisfactory initiation and propagation with all modali ties tested. Normal mastication is seen with solid modalities tested. There is no evidence of penet ration or aspiration with any modality tested. No significant pharyngeal residue was appreciated. Fr ontal view was performed to evaluate for any paraesophageal stricture. Delayed passage of the pudding thick barium was seen at the level of the aortic arch with no stricture seen after administration of thin liquid consistency. IMPRESSION: Normal deglutition study. Mildly delayed propulsion of the pudding consistency at the le sedrick of the aortic arch with no stricture identified. Esophagitis is possible. Please refer to speech therapist notes for further details if necessary.
[2020-02-01] MEDS: NICOTINE 21MG/24HR PATCH TRANSDERM SCH (13:29)
[2020-02-01] MEDS: ACETAMINOPHEN TAB 325 MG TAB PO PRN (13:29)
[2020-02-01] MEDS: VENLAFAXINE HCL ER 37.5 MG CAP PO SCH (13:29)
[2020-02-01 15:19] LABS: Basophils % (A) 0 %; Eosinophils # (A) 0.1 k/uL (0-0.7); Eosinophils % (A) 2 %; HCT 40.3 % (34.0-46.0); HGB 13.6 gm/dL (11.4-16.0); Lymphocytes # (A) 2.3 k/uL (1.0-4.8); Lymphocytes % (A) 27 %; MCH 32.7 pg (25.0-35.0); MCHC 33.6 g/dL (31.0-37.0); MCV 97.1 fL (80.0-100.0); Mean Platelet Volume 7.7; Monocytes # (A) 0.4 k/uL (0-1.0); Monocytes % (A) 5 %; Neutrophils # (A) 5.6 k/uL (1.3-7.7); Neutrophils % (A) 65 %; Platelet Count 185 k/uL (150-450); RBC 4.15 m/uL (3.80-5.40); RDW 12.1 % (11.5-15.5); WBC 8.6 k/uL (3.8-10.6)
[2020-02-01 15:25] LABS: ALT 13 U/L (4-34); AST 22 U/L (14-36); African American GFR (CKD) >90 (>60 ml/min/1.73 sqM); Albumin 4.1 g/dL (3.5-5.0); Alkaline Phosphatase 51 U/L (38-126); Anion Gap 4 mmol/L; Blood Urea Nitrogen 11 mg/dL (7-17); Carbon Dioxide 30 mmol/L (22-30); Chloride 103 mmol/L (98-107); Glucose 117 mg/dL (74-99); Non-African American GFR(CKD) >90 (>60 ml/min/1.73 sqM); Sodium 137 mmol/L (137-145); Total Bilirubin 0.7 mg/dL (0.2-1.3); Total Protein 6.7 g/dL (6.3-8.2)
[2020-02-01 15:30] LABS: Potassium 4.6 mmol/L (3.5-5.1)
--- NOTE | 2020-02-01 15:50 | P.HP ---
Psychiatric H&P - . H&P Date: 02/01/20 History & Physical: IDENTIFYING DATA: The patient is a 39-year-old female admitted to psychiatric unit voluntarily with complaints of increasing anxiety and depression. HISTORY OF PRESENT ILLNESS: She presented himself as always anxious and experiencing panic attacks but able to cope and manage her life and care of her family. She experienced a marked change in November after an acute viral pharyngitis. She has been more anxious, restless and depressed. Over the 2 weeks prior to admission she noticed a marked change in herself. She is not been able to sleep, she is crying frequently, she is more anxious and experiencing more frequent "panic attacks". She described her "panic attacks" have a brief episode of "electric shock" where she often experiences shortness of breath, lightheadedness and depersonalization. The most distressing symptom is the inability to sleep. She alleges that she was awake for 3 days prior to her presentation to the emergency room. She has been restless, tense and nervous. She has difficulty concentrating and focusing. She has lost 10 pounds since November. However she denied that she has lost her ability to enjoy herself. She specifically talked about enjoying her time with her children. She has not lost interest in sex. She denied experiencing thoughts of or suicide. She denied a history of suicide attempts or gestures. She does not drink or use drugs get high, help her sleep or change her mood. She denied experiencing periods of elevated mood or irritability consistent with juan c or hypomania. She denied experiencing obsessions or compulsions. She denied such psychotic symptoms as hallucinations, paranoia and thought disturbances. PAST PSYCHIATRIC HISTORY: She had one prior hospitalization due to [facility] when she was 20 years old. She became acutely depressed after the suicide of her boyfriend. She experience adverse reaction to Paxil and Zoloft. She was unable to tolerate Remeron. Her depression improved when she was treated with Effexor. Recently, she developed adverse reaction to Zyban prescribed by her primary physician treatment of tobacco use. PAST MEDICAL HISTORY: She has a history of pharyngitis an adverse reaction to steroids prescribed for the treatment of her pharyngitis. She complains of continued difficulty swallowing. ALLERGIES: Codeine, cefdinir SUBSTANCE USE HISTORY: Denied FAMILY PSYCHIATRIC/SUBSTANCE USE HISTORY: She alleges that her 4 brothers and 1 sister have alcohol use problems. LEGAL HISTORY: Denied SOCIAL HISTORY: She was born and raised in [place]. Her father when she was 13 years old. She described a close and supportive relationship with her mother. Her mother in 2013. She had one child out of wedlock when she was 17 years old. She left school when she was received a GED. She has been for 14 years. She has 2 children from this marriage. 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 MENTAL STATUS EXAM: She presented as a thin and anxious appearing 39-year-old female who looked her stated age. She was casually dressed and groomed. She made eye contact and attended to the interview. She had no distinction features are prominent physical abnormalities. She had a distressed facial expression and she cried intermittently throughout the interview. She was alert and oriented to person, place and time. She was restless but did not demonstrate abnormal movements. Her speech was spontaneous with normal rate, rhythm and volume and consistent with her mood. Her affect was anxious, depr essed but stable and appropriate. She denied suicidal ideation or wishes. She denied homicidal ideation. She expressed feelings of hopelessness, helplessness but denied feelings of worthlessness. She ruminated over her anxiety, depression and difficulty controlling her emotions. She did not express ideas reference, paranoid ideation or delusions. Her thinking was abstract and associations were coherent, logical and goal directed. She denied hallucinations and did not appear to be responding to internal stimuli. STRENGTHS: Supportive family, stable housing, stable income, engagement with treatment WEAKNESSES: Anxiety disorder IMPRESSION: She is a 39-year-old female who presents with complaints of depression and anxiety that are consistent with a major depressive disorder and probable panic disorder. The panic disorder is appear to be present since she was 20 years old following her first psychiatric hospitalization. She was able to manage the panic attacks without medication or formal psychiatric intervention. Her symptoms worsened in November following a viral infection. Since then she described increasing depression and anxiety that has interfered with her ability to function. She began inpatient basis with combination of psychopharmacology and multimodal therapy. 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 Safety precautions. Medical consultation appreciated. Barium swallow pending. Check thyroid and iron status. horse stud worker completed initial psychosocial assessment and coordinate discharge and aftercare. Begin Effexor XR 37.5 mg daily and titrated according to clinical response and tolerance. We discussed alternatives for the treatment of insomnia and anxiety and she consented to Vistaril 25 mg at bedtime when necessary for sleep. Continue Ativan 1 mg by mouth 3 times a day when necessary for anxiety. Encourage participation in therapeutic groups and activities. Evaluate clinical status response to treatment daily basis. Allergies Allergy/AdvReac Type Severity Reaction Status Date / Time codeine Allergy Rash/Hives Verified 01/31/20 14:38 cefdinir AdvReac Diarrhea Verified 01/31/20 14:38 STEROIDS AdvReac Confusion Uncoded 01/31/20 14:38 Vital Signs Temp 98.2 F 02/01/20 01:13 Pulse 95 02/01/20 01:13 Resp 16 02/01/20 01:13 BP 114/70 02/01/20 01:13 Pulse Ox 99 01/31/20 14:58 Intake & Output 01/31/20 02/01/20 02/01/20 18:59 06:59 18:59 Weight 52.8 kg Laboratory Last Values POC Glucose (mg/dL) 98 mg/dL (75-99) 02/01/20 07:28 POC Glu Wire Border Assembler ID Virgie Merrill 02/01/20 07:28 02/01/20 09:01 02/01/20 15:47
[2020-02-01] MEDS: PANTOPRAZOLE 40 MG TABLET PO SCH (16:31)
[2020-02-01 23:22] LABS: % Iron Saturation 15.26 (12.00-45.00)
[2020-02-02 01:50] VITALS: RESP 14
[2020-02-02] MEDS: ACETAMINOPHEN TAB 325 MG TAB PO PRN (05:54)
[2020-02-02] MEDS: VENLAFAXINE HCL ER 37.5 MG CAP PO SCH (09:25)
[2020-02-02] MEDS: PANTOPRAZOLE 40 MG TABLET PO SCH (09:25)
[2020-02-02] MEDS: NICOTINE 21MG/24HR PATCH TRANSDERM SCH (09:25)
[2020-02-02] MEDS ORDERED: QUEtiapine 25 MG TAB PO ONE (09:26)
--- NOTE | 2020-02-02 12:50 | P.PN ---
Subjective Progress Note Date: 02/02/20 Principal diagnosis: Major depressive disorder severe recurrent without psychotic features, panic disorder I reviewed the medical record, interviewed the patient and discussed her treatment and treatment plan during team meeting. She slept only 3 hours last night. This morning she was acutely distressed. She was anxious and tearful. She complained about her sleep. I reminded her of our discussion yesterday and again recommended a second generation antipsychotic. She consented to a trial of Seroquel. About 1 hour after taking 12.5 mg of Seroquel she was asleep. Objective - Vital Signs Vital signs: Vital Signs Temp 98.6 F 02/02/20 00:05 Pulse 89 02/02/20 00:05 Resp 14 02/02/20 00:05 BP 122/73 02/02/20 00:05 Pulse Ox 99 01/31/20 14:58 - Exam She presented as a thin, acutely distressed, anxious and tearful woman. She made eye contact and appeared to attend to the interview. She had psychomotor retardation but no abnormal movements. Her affect was depressed, anxious and intense. She denied current suicidal ideation or wishes. She denied experiencing such psychotic symptoms today reference, paranoid ideation, delusions or hallucinations. - Labs CBC & Chem 7: 02/01/20 15:00 02/01/20 15:00 Labs: Abnormal Lab Results - Last 24 Hours (Table) 02/01/20 02/01/20 Range/Units 15:00 15:00 Glucose 117 H (74-99) mg/dL Iron 47 L (50-170) ug/dL Assessment and Plan Assessment: She remains severely mentally ill unchanged from admission. She continues to require inpatient treatment due to the severity of the depressive symptoms. Plan: Continue Effexor XR 37.5 mg and titrated according to clinical response and tolerance. Seroquel 12.5 mg by mouth now and 25 mg by mouth at bedtime. Titrate the Seroquel according to clinical response and tolerance. Encourage participation in therapeutic groups and activities as tolerated. Evaluate clinical status response to treatment daily basis.
[2020-02-02] MEDS: QUEtiapine 25 MG TAB PO SCH (20:44)
[2020-02-03] MEDS: QUEtiapine 25 MG TAB PO SCH (01:19)
[2020-02-03 01:23] VITALS: BP 101/69; PULSE 88; TEMP 98.7
[2020-02-03] MEDS: NICOTINE 21MG/24HR PATCH TRANSDERM SCH (09:52)
[2020-02-03] MEDS: VENLAFAXINE HCL ER 37.5 MG CAP PO SCH (09:52)
[2020-02-03] MEDS: PANTOPRAZOLE 40 MG TABLET PO SCH (09:52)
[2020-02-03] MEDS: ACETAMINOPHEN TAB 325 MG TAB PO PRN (09:54)
--- NOTE | 2020-02-03 14:45 | P.DS ---
Providers Date of admission: 01/31/20 13:18 Attending physician: Suresh Paige MD Consults: 01/31/20 13:24 Consult Physician Routine Consulting Provider: Cornell Myers Consult Reason/Comments: H and P Do you want consulting provider notified?: Yes Primary care physician: Jake Carter - Discharge Diagnosis(es) (1) Major depressive disorder, recurrent episode, mild with anxious distress Current Visit: Yes Status: Chronic Priority: High (2) Pharyngitis Current Visit: Yes Status: Chronic Priority: Low (3) Tobacco use He is not interested in smoking cessation. He declined a prescription for nicotine replacement therapy. Brief intervention provided Current Visit: Yes Status: Chronic Priority: Medium (4) Eustachian tube dysfunction Current Visit: No Status: Chronic Priority: Low Hospital Course: She is a 39-year-old female admitted to psychiatric unit voluntarily with complaints of increasing anxiety and depression. She presented herself as always anxious and experiencing panic attacks but able to cope and manage her life and care of her family. She experienced a marked change in November after an acute viral pharyngitis. She has been more anxious, restless and depressed. Over the 2 weeks prior to admission she noticed a marked change in herself. She is not been able to sleep, she is crying frequently, she is more anxious and experiencing more frequent "panic attacks". She described her "panic attacks" have a brief episode of "electric shock" where she often experiences shortness of breath, lightheadedness and depersonalization. The most distressing symptom is the inability to sleep. She alleges that she was awake for 3 days prior to her presentation to the emergency room. She has been restless, tense and nervous. She has difficulty co ncentrating and focusing. She has lost 10 pounds since November. However she denied that she has lost her ability to enjoy herself. She specifically talked about enjoying her time with her children. She has not lost interest in sex. She denied experiencing thoughts of or suicide. She denied a history of suicide attempts or gestures. She does not drink or use drugs get high, help her sleep or change her mood. She denied experiencing periods of elevated mood or irritability consistent with juan c or hypomania. She denied experiencing obsessions or compulsions. She denied such psychotic symptoms as hallucinations, paranoia and thought disturbances. She had one prior hospitalization due to [facility] when she was 20 years old. She became acutely depressed after the suicide of her boyfriend. She experience adverse reaction to Paxil and Zoloft. She was unable to tolerate Remeron. Her depression improved when she was treated with Effexor. Recently, she developed adverse reaction to Zyban prescribed by her primary physician treatment of tobacco use. We admitted her to the psychiatric unit under care of this entry writer. Provided a copy has a biopsychosocial assessment. The x ray consultant vibrating screen operator completed initial physical exam and medical history and diagnosed swelling of the pharyngeal tissue sex secondary suspected viral illness, difficulty swallowing and tobacco use. He recommended a barium swallow to evaluate or dysphagia. The impression of the readiologist was that she had a normal deglutition study. Mildly delayed propulsion of the pudding consistency at the level of the aortic arch with no specific structure. Esophagitis is possible. She was initially hesitant to take any prescribed medications for her depression and anxiety. She eventually agreed to restart Effexor and we began Effexor XR at a dose of 37.5 mg. She would not take the nighttime dose of medication for insomnia or augmentation of the antidepressant with the exception of Vistaril until the second day of admission after she slept only 3 hours. She received 12.5 milligrams of Seroquel and slept for 5 hours during the day and slept for 5 hours at night after 25 mg dose. On the third day of admission she insisted on discharge. She complained about her experiences on the unit and alleged that she is more distressed because the other patients who have severe mental illness. I spoke with her on the telephone. He has no concerns about her returning home. He will assure that she is compliant with prescribed medications including increase of Effexor XR to 75 mg daily. At time of discharge she presented as a casually groomed and 39-year-old female who made eye contact and attended to the interview. She had no distinguishing features or prominent physical abnormalities. She had a distressed facial expression and cried intermittently during the interview. She is alert and oriented to person, place and time. She showed psychomotor retardation but no abnormal movements. Her speech was spontaneous with normal rate, rhythm and volume. Affect was dysphoric, depressed and anxious. She denied suicidal ideation or wishes. She denied homicidal ideation. She feels helpless over her ongoing pharyngeal difficulties but did not express hopelessness or worthlessness. She ruminated about her physical illness and her experiences on the unit. She denied ideas reference, paranoid ideation or delusions. Her thinking was abstract and associations were coherent, logical and goal directed. She denied hallucinations and did not appear to be responding to internal stimuli. Patient Condition at Discharge: Poor Plan - Discharge Summary New Discharge Prescriptions: New Venlafaxine HCl ER [Effexor XR] 75 mg PO DAILY #30 cap.er.24h QUEtiapine [SEROquel] 25 mg PO HS #30 tab Continue Ibuprofen [Advil] 400 mg PO Q8HR PRN PRN Reason: Pain Discontinued ALPRAZolam [Xanax] 0.25 mg PO BID Discharge Medication List Ibuprofen [Advil] 400 mg PO Q8HR PRN 12/12/19 [History] QUEtiapine [SEROquel] 25 mg PO HS #30 tab 02/03/20 [Rx] Venlafaxine HCl ER [Effexor XR] 75 mg PO DAILY #30 cap.er.24h 02/03/20 [Rx] Follow up Appointment(s)/Referral(s): intake,intake [Other] - 02/07/20 1:00 pm Jake Carter MD [Primary Care Provider] - 1-2 days Patient Instructions/Handouts: Depression (DC), Anxiety (GEN), Dysphagia (ED) Activity/Diet/Wound Care/Special Instructions: Activity and diet as tolerated. Avoid the use of street drugs and alcohol. Take all medications as prescribed. When you are in need of refills on your medications please contact your medical provider and/or outpatient psychiatrist to have this done. Please go to scheduled outpatient appointment for aftercare. If symptoms return or become worse call the crisis line at and/or go to the nearest emergency room for an evaluation. Discharge Disposition: HOME SELF-CARE
[2020-02-04] MEDS ORDERED: VENLAFAXINE HCL ER 75 MG CAP PO SCH (09:00)
--- NOTE | 2020-02-04 10:41 | P.PN ---
Progress Note - Text Progress Note Date: 02/04/20 Her called complaining that she is not doing well. She is anxious and fretful. She is complaining of head pressure. She fell asleep early one morning and was reluctant to take the Seroquel. She is anxious about taking the 75 mg Effexor XR. She was so distressed that he came home from work and will be with her during the day. I recommended that this by Friday she does not improve he should bring her back to the hospital and explained that she would need to be here at least 1 week.
== END 2020-02-03 16:00 | disposition home or self-care (01) | DRG 885 ==
LOC: EC 07:48 → 3MHU 13:18
PROVIDERS: ADMIT Psychiatry & Neurology Psychiatry; ATTEND Psychiatry & Neurology Psychiatry
DX: F33.2 Major depressive disorder, recurrent severe without psychotic features (principal); F17.200 Nicotine dependence, unspecified, uncomplicated; F41.0 Panic disorder [episodic paroxysmal anxiety]; G47.00 Insomnia, unspecified; H69.80 Other specified disorders of Eustachian tube, unspecified ear; Z82.49 Family history of ischemic heart disease and other diseases of the circulatory system; Z88.5 Allergy status to narcotic agent; Z88.8 Allergy status to other drugs, medicaments and biological substances
CPT/HCPCS: 74230; 80053; 82075; 83540; 83550; 84443; 85025; 85652; 86140; 99284

== ENCOUNTER 2020-12-18 15:36 | Observation (INO) | payer BC ==
[2020-12-18 16:36] LABS: Basophils # (A) 0.1 k/uL (0-0.2); Basophils % (A) 1 %; Eosinophils # (A) 0.1 k/uL (0-0.7); Eosinophils % (A) 2 %; HCT 43.4 % (34.0-46.0); Lymphocytes # (A) 1.6 k/uL (1.0-4.8); Lymphocytes % (A) 17 %; MCH 33.2 pg (25.0-35.0); MCHC 34.5 g/dL (31.0-37.0); MCV 96.3 fL (80.0-100.0); Mean Platelet Volume 7.4; Monocytes # (A) 0.3 k/uL (0-1.0); Monocytes % (A) 4 %; Neutrophils # (A) 7.2 k/uL (1.3-7.7); Neutrophils % (A) 77 %; Platelet Count 185 k/uL (150-450); RBC 4.51 m/uL (3.80-5.40); RDW 12.3 % (11.5-15.5); WBC 9.4 k/uL (3.8-10.6)
[2020-12-18 16:45] LABS: ALT 15 U/L (4-34); AST 24 U/L (14-36); African American GFR (CKD) >90 (>60 ml/min/1.73 sqM); Albumin 4.7 g/dL (3.5-5.0); Alkaline Phosphatase 81 U/L (38-126); Anion Gap 12 mmol/L; Blood Urea Nitrogen 10 mg/dL (7-17); Calcium 9.2 mg/dL (8.4-10.2); Carbon Dioxide 24 mmol/L (22-30); Chloride 102 mmol/L (98-107); Glucose 124 mg/dL (74-99); Non-African American GFR(CKD) >90 (>60 ml/min/1.73 sqM); Potassium 3.8 mmol/L (3.5-5.1); Sodium 138 mmol/L (137-145); Total Bilirubin 0.7 mg/dL (0.2-1.3); Total Protein 7.8 g/dL (6.3-8.2)
[2020-12-18] MEDS ORDERED: CLINDAMYCIN 600 MG in DEXTROSE 5% IN WATER 50 ML IVPB STA ×2 (16:57)
--- NOTE | 2020-12-18 17:03 | ED ---
Skin/Abscess/FB HPI - General Source: patient Mode of arrival: ambulatory Limitations: no limitations <Na Zapata - Last Filed: 12/18/20 18:02> <Kitty Gonzalez - Last Filed: 12/22/20 09:52> - General Chief complaint: Skin/Abscess/Foreign Body Stated complaint: Cellulitis in R Eye Time Seen by Provider: 12/18/20 15:39 - History of Present Illness Initial comments: 40yo female presnting for right sided facial swelling/redness and pain x 1 week. patient states about 9 days ago she noticed a pimple-like lesion on her right cheek. Patient states his spread upwards towards her eye throughout the week. Patient states she started antibiotics 3 days later by primary care provider she states it was Bactrim. Patient states that she has been 6 days of anitbiotics and there has been no improvement, aside from one day her eye was swollen shut, but has no adone this since. she denies pain with EOM, denies eye redness/drainage or vision loss patient states she was on a tobramycin drop for the eye as well. Patient states when she saw her PCP today she was sent to ER for possible imaging studies and failed outpatient treatment of a facial cellulitis. (Na Zapata) - Related Data Home Medications Medication Instructions Recorded Confirmed Sulfamethox-Tmp 800-160Mg [Bactrim 1 tab PO Q12HR 12/18/20 12/18/20 DS 800-160 mg] Tobramycin/Dexamethasone [Tobradex 1 drop BOTH EYES Q4HR 12/18/20 12/18/20 Ophth Susp] Previous Rx's Medication Instructions Recorded Venlafaxine HCl ER [Effexor XR] 75 mg PO DAILY #30 cap.er.24h 02/03/20 Amoxic-Pot Clav 875-125Mg 1 each PO Q12HR #14 tab 12/19/20 [Augmentin 875-125] Ibuprofen [Motrin] 600 mg PO QID PRN #30 tab 12/19/20 Allergies Allergy/AdvReac Type Severity Reaction Status Date / Time codeine Allergy Rash/Hives Verified 12/18/20 21:26 cefdinir AdvReac Diarrhea Verified 12/18/20 21:26 STEROIDS AdvReac Confusion Uncoded 12/18/20 21:26 Review of Systems ROS Other: All systems not noted in ROS Statement are negative. <Na Zapata - Last Filed: 12/18/20 18:02> ROS Other: All systems not noted in ROS Statement are negative. <Kitty Gonzalez - Last Filed: 12/22/20 09:52> ROS Statement: Those systems with pertinent positive or pertinent negative responses have been documented in the HPI. Past Medical History Past Medical History: No Reported History History of Any Multi-Drug Resistant Organisms: None Reported Past Surgical History: Adenoidectomy, Ear Surgery, Orthopedic Surgery, Tonsi llectomy Additional Past Surgical History / Comment(s): R foot, R hand, nose surgery Past Anesthesia/Blood Transfusion Reactions: No Reported Reaction Additional Past Anesthesia/Blood Transfusion Reaction / Comment(s): patient has never had a blood transfusion Past Psychological History: Anxiety, Panic Disorder Smoking Status: Current every day smoker Past Alcohol Use History: Occasional Past Drug Use History: None Reported - Past Family History Father Family Medical History: Myocardial Infarction ([place]) Mother Family Medical History: Congestive Heart Failure ([place]), Myocardial Infarction ([place]) <Na Zapata - Last Filed: 12/18/20 18:02> General Exam Limitations: no limitations <Na Zapata - Last Filed: 12/18/20 18:02> - General Exam Comments Initial Comments: General: The patient is awake and alert, in no distress Eye: Pupils are equal, round and reactive to light, extra-ocular movements are intact no pain with EOM. No nystagmus. There is normal conjunctiva bilaterally. No signs of icterus. Ears, nose, mouth and throat: There are moist mucous membranes and no oral lesions. Neck: The neck is supple, there is no tenderness or JVD. Cardiovascular: There is a regular rate and rhythm. No murmur, rub or gallop is appreciated. Respiratory: Lungs are clear to auscultation, respirations are non-labored, breath sounds are equal. No wheezes, stridor, rales, or rhonchi. Gastrointestinal: Soft, non-distended, non-tender abdomen without masses or organomegaly noted. There is no rebound or guarding present Musculoskeletal: Normal ROM, no tenderness. Strength 5/5. Sensation intact. Pulses equal bilaterally 2+. Neurological: A&O x 3. CN II-XII intact, There are no obvious motor or sensory deficits. Coordination appears grossly intact. Speech is normal. Skin: Skin is warm and dry and no rashes. redness adjacent to the nose on right side of face. swellling. Psychiatric: Cooperative, appropriate mood & affect, normal judgment. (Na Zapata) Course Vital Signs 12/18/20 12/18/20 15:40 18:43 Temperature 98.1 F 99 F Pulse Rate 100 Pulse Rate [ 90 Right Brachial] Respiratory 18 18 Rate Blood Pressure 149/87 Blood Pressure 114/72 [Right Arm] O2 Sat by Pulse 100 98 Oximetry Medical Decision Making - Lab Data Result diagrams: 12/18/20 16:28 12/18/20 16:28 <Na Zapata - Last Filed: 12/18/20 18:02> - Lab Data Result diagrams: 12/18/20 16:28 12/18/20 16:28 <Kitty Gonzalez - Last Filed: 12/22/20 09:52> - Medical Decision Making facial celluitis presenting with failed outpatient treatmetn on abx (bactrim). given keflex in ER. Pt does not appear toxic. no orbital cellulitis. the collection on CT does not appear well formed as far as the 14mm possible abscess vs phelgmon. patient cdase discussed with Dr. Gonzalez who evaluated patient she is agreeable to admission for IV abx and further monitoring. needle aspiration performed. yellow/green purulent drainage. (Na Zapata) I was available for consultation in the emergency department. The history and physical exam were done by the midlevel provider. I was consulted for this patients care. I reviewed the case with the midlevel provider and based on their presentation of the patient, I agree with the assessment, medical decision making and plan of care as documented. I evaluated the patient myself. No signs of occular involvement. Patient does agree to needle drainage in the ED. Spoke with Dr. Best who agreed to obs the patient to ensure improvement after addition of iv antibiotic coverage and needle drainage. Chart was dictated using [employer] dictation software. Attempts were made to correct any dictation errors however some typographical errors may persist. Patient was seen during a national state of emergency due to the Covid-19 pandemic. (Kitty Gonzalez - Lab Data Lab Results 12/18/20 12/18/20 12/18/20 Range/Units 16:28 16:28 16:28 WBC 9.4 (3.8-10.6) k/uL RBC 4.51 (3.80-5.40) m/uL Hgb 15.0 (11.4-16.0) gm/dL Hct 43.4 (34.0-46.0) % MCV 96.3 (80.0-100.0) fL MCH 33.2 (25.0-35.0) pg MCHC 34.5 (31.0-37.0) g/dL RDW 12.3 (11.5-15.5) % Plt Count 185 (150-450) k/uL MPV 7.4 Neutrophils % 77 % Lymphocytes % 17 % Monocytes % 4 % Eosinophils % 2 % Basophils % 1 % Neutrophils # 7.2 (1.3-7.7) k/uL Lymphocytes # 1.6 (1.0-4.8) k/uL Monocytes # 0.3 (0-1.0) k/uL Eosinophils # 0.1 (0-0.7) k/uL Basophils # 0.1 (0-0.2) k/uL Sodium 138 (137-145) mmol/L Potassium 3.8 (3.5-5.1) mmol/L Chloride 102 (98-107) mmol/L Carbon Dioxide 24 (22-30) mmol/L Anion Gap 12 mmol/L BUN 10 (7-17) mg/dL Creatinine 0.66 (0.52-1.04) mg/dL Est GFR (CKD-EPI)AfAm >90 (>60 ml/min/1.73 sqM) Est GFR (CKD-EPI)NonAf >90 (>60 ml/min/1.73 sqM) Glucose 124 H (74-99) mg/dL Plasma Lactic Acid Hermilo 1.1 (0.7-2.0) mmol/L Calcium 9.2 (8.4-10.2) mg/dL Total Bilirubin 0.7 (0.2-1.3) mg/dL AST 24 (14-36) U/L ALT 15 (4-34) U/L Alkaline Phosphatase 81 (38-126) U/L Total Protein 7.8 (6.3-8.2) g/dL Albumin 4.7 (3.5-5.0) g/dL Disposition Is patient prescribed a controlled substance at d/c from ED?: No Time of Disposition: 17:38 Decision to Admit Reason: Admit from EC Decision Date: 12/18/20 Decision Time: 17:38 <Na Zapata - Last Filed: 12/18/20 18:02> <Kitty Gonzalez - Last Filed: 12/22/20 09:52> Clinical Impression: Failure of outpatient treatment, Facial cellulitis, Facial abscess Disposition: ADMITTED IP TO THIS HOSP Condition: Stable
--- NOTE | 2020-12-18 17:29 | CT ---
EXAMINATION TYPE: CT facial bones w con DATE OF EXAM: 12/18/2020 COMPARISON: HISTORY: right eye swelling redness CT DLP: 458.7 mGycm Automated exposure control for dose reduction was used. CONTRAST: Performed with IV Contrast, patient injected with 100 mL of Isovue 300. Images are obtained from the bottom of the maxilla to the top of the brain with IV contrast. The orbital margins are intact. There is no evidence of retro-orbital mass. The nasal bone is intact. There is fairly normal aeration of the paranasal sinuses. There is normal aeration of the mastoid si nuses. There is soft tissue swelling anterior to the right maxilla. There is 14 mm area of mixed attenuation in the cutaneous tissues that would be consistent with a phlegmon or abscess. The maxilla is intact. I see no bony destructive process. Temporomandibular joints appear normal. The re is no pathologic enhancement. Ventricles and sulci appear normal. Brain appears normal. IMPRESSION: Subcutaneous mass anterior to the right maxilla consistent with inflammatory process..
[2020-12-18] MEDS ORDERED: NALOXONE 0.4 MG/ML 1 ML VIAL IV PRN (17:35)
[2020-12-18] MEDS ORDERED: cefTRIAXone IN SWFI 1,000 MG/10 ML SYRINGE IVP STA (17:47)
--- NOTE | 2020-12-18 21:55 | P.HPIM ---
History of Present Illness H&P Date: 12/18/20 The patient is a 40-year-old female with no known PMH who presented to the emergency room with complaints of right-sided facial pain and swelling. Patient notes that her symptoms started on Friday12/10/20 with swelling on the right cheek. She was seen in her PCPs office the following day and was started on Bactrim. Patient notes that her swelling however continued to worsen and gradually moved to involve the area surrounding the right eye right eye. She describes a pressure-like sensation on the right side of the face, brought on by bending forward or looking down. The patient was subsequently seen at the primary care's office earlier today who advised her to come to the emergency room for drainage of suspected abscess. At time of interview, the patient denied pain at rest. She underwent an aspiration of fluid culture in the emergency room which the patient notes improved her discomfort. She denied visual changes, eye drainage, eye redness, headache, difficulty swallowing, nasal drainage. Further denied fever, chills, chest discomfort, shortness of breath, nausea, vomiting, abdominal pain. She underwent an extensive evaluation in the emergency room with a facial CT that revealed a 14 mm area anterior to the right maxilla of mixed attenuation consistent with an abscess or phlegmon. Laboratory evaluation was unremarkable aside from a glucose of 124. Review of Systems Pertinent positives and negatives as discussed in HPI, a complete review of systems was performed and all other systems are negative. Past Medical History Past Medical History: No Reported History History of Any Multi-Drug Resistant Organisms: None Reported Past Surgical History: Adenoidectomy, Ear Surgery, Orthopedic Surgery, Tonsillectomy Additional Past Surgical History / Comment(s): R foot, R hand, nose surgery Past Anesthesia/Blood Transfusion Reactions: No Reported Reaction Additional Past Anesthesia/Blood Transfusion Reaction / Comment(s): patient has never had a blood transfusion Past Psychological History: Anxiety, Panic Disorder Smoking Status: Current every day smoker Past Alcohol Use History: Occasional Past Drug Use History: None Reported - Past Family History Father Family Medical History: Myocardial Infarction ([place]) Mother Family Medical History: Congestive Heart Failure ([place]), Myocardial Infarction ([place]) Medications and Allergies Home Medications Medication Instructions Recorded Confirmed Type Ibuprofen [Advil] 200 mg PO Q8HR PRN 12/12/19 12/18/20 History Venlafaxine HCl ER [Effexor XR] 75 mg PO DAILY #30 cap.er.24h 02/03/20 12/18/20 Rx Sulfamethox-Tmp 800-160Mg [Bactrim 1 tab PO Q12HR 12/18/20 12/18/20 History DS 800-160 mg] Tobramycin/Dexamethasone [Tobradex 1 drop BOTH EYES Q4HR 12/18/20 12/18/20 History Ophth Susp] Allergies Allergy/AdvReac Type Severity Reaction Status Date / Time codeine Allergy Rash/Hives Verified 12/18/20 16:10 cefdinir AdvReac Diarrhea Verified 12/18/20 16:10 STEROIDS AdvReac Confusion Uncoded 12/18/20 15:46 Physical Exam Vitals: Vital Signs Temp Pulse Pulse Resp BP BP Pulse Ox 12/18/20 20:00 98.4 F 92 18 114/77 97 12/18/20 18:43 99 F 90 18 114/72 98 12/18/20 15:40 98.1 F 100 18 149/87 100 Intake and Output 12/18/20 12/18/20 12/18/20 06:59 14:59 22:59 Other: Weight 58.967 kg General: non toxic, no distress, appears at stated age, normal weight Derm: Erythema involving the right side of the face adjacent to the nose with palpable collection noted along with periorbital swelling and erythema Head: atraumatic, normocephalic, symmetric Eyes: EOMI, no lid lag, anicteric sclera, pupils equal round reactive to light ENT: Nose and ears atraumatic, no thrush, no pharyngeal erythema Neck: No thyromegaly, no cervical lymphadenopathy, trachea midline, supple Mouth: no lip lesion, mucus membranes moist Cardiovascular: S1S2 reg, no murmur, positive posterior tibial pulse bilateral, no edema, capillary refill less than 2 seconds Lungs: CTA bilateral, no rhonchi, no rales , no accessory muscle use Abdominal: soft, nontender to palpation, no guarding, no appreciable organomegaly, normal bowel sounds Ext: no gross muscle atrophy, muscle strength 5 out of 5 in all 4 extremities grossly, no contractures, Neuro: CN II-XI grossly intact, light touch intact all 4 extremities, finger to nose within normal limits, Psych: Alert, oriented, appropriate affect Results CBC & Chem 7: 12/18/20 16:28 02/01/21 16:28 Labs: Abnormal Lab Results - Last 24 Hours (Table) 12/18/20 Range/Units 16:28 Glucose 124 H (74-99) mg/dL Assessment and Plan Plan: Right facial cellulitis with underlying abscess/phlegmon -Continue with Augmentin and clindamycin -ENT consult for incision and drainage -Follow up fluid culture DVT prophylaxis -IPCDs The patient is admitted with an anticipated less than 2 midnight stay for evaluation of facial pain CODE STATUS: Full Code Discussed with: Patient Anticipated discharge date: in am Anticipated discharge place: Home A total of 35 minutes was spent on the care of this complex patient more than 50% of the time was spent in counseling and care coordination.
[2020-12-18] MEDS: AMOXIC-POT CLAV 875-125MG 1 EACH TAB PO SCH (21:56)
[2020-12-19] MEDS: CLINDAMYCIN 300 MG in DEXTROSE 5% IN WATER 50 ML IVPB SCH ×4 (00:51→08:51)
[2020-12-19] MEDS: AMOXIC-POT CLAV 875-125MG 1 EACH TAB PO SCH (08:52)
[2020-12-19] MEDS ORDERED: AMOXIC-POT CLAV 875-125MG 1 EACH TAB PO SCH (09:00)
[2020-12-19 09:19] VITALS: BP 109/72; PULSE 88; RESP 16; TEMP 98.3
[2020-12-19] MEDS ORDERED: IBUPROFEN 600 MG TAB PO PRN (09:30)
--- NOTE | 2020-12-19 12:28 | P.DS ---
Providers Date of admission: 12/18/20 17:46 Expected date of discharge: 12/19/20 Attending physician: Liz Cabello MD Consults: 12/18/20 17:46 Consult Physician Urgent Consulting Provider: David Penaloza Consult Reason/Comments: facial cellulitis Do you want consulting provider notified?: Yes Primary care physician: Jake Carter Hospital Course: Discharge Diagnosis: Right facial cellulitis with 14 mm abscess right maxilla, failed outpatient treatment Tobacco abuse Hospital Course: Patient is 40-year-old female with no known past medical history who presented to the emergency department at the direction of Dr. Carter secondary to right- sided facial pain and swelling. Her symptoms had initially begun on 12/10/20. She had been taking antibiotics and a shot of ceftriaxone at her primary care physician's office. However she continued to have increased swelling over her right nasal area and up into her right lower eyelid. On presentation to the ER she underwent aspiration and fluid culture which improved her discomfort somewhat. However this area stopped draining. She had undergone a facial CT which revealed an area of abscess or phlegmon in the right axilla of 14 mm. She was admitted and placed on Augmentin and clindamycin. ENT was consulted and recommended drainage in the office. She was afebrile and had no white blood cell count. She was discharged with immediate follow-up at Dr. Guzman's office on 12/19/20 at 12 PM. She'll complete 7 days of Augmentin. She'll also follow-up at Dr. Carter's office on 12/25. Patient seen and examined at bedside. Pain improved after drainage of the right sided mass. Increased as this not draining any longer. She denies any changes in vision, double vision, difficulty moving her closing her eyes. No other complaints currently. Vital signs reviewed and stable. General: non toxic, no distress, appears at stated age Derm: warm, dry erythema adjacent to the right side of the nose with tracting to the medical canthal fold, palpable fluid collection noted with purulent head. Head: atraumatic, normocephalic, symmetric Eyes: EOMI, no lid lag, anicteric sclera Mouth: no lip lesion, mucus membranes moist Cardiovascular: S1S2 reg, no murmur, positive posterior tibial pulse bilateral, Lungs: CTA bilateral, no rhonchi, no rales , no accessory muscle use Neuro: CN II-XI grossly intact, no focal neuro deficits Psych: Alert, oriented, appropriate affect A total of 25 minutes of time were spent preparing this complex discharge summary . Patient Condition at Discharge: Stable Plan - Discharge Summary Discharge Rx Participant: No New Discharge Prescriptions: New Amoxic-Pot Clav 875-125Mg [Augmentin 875-125] 1 each PO Q12HR #14 tab Ibuprofen [Motrin] 600 mg PO QID PRN #30 tab PRN Reason: Pain Continue Venlafaxine HCl ER [Effexor XR] 75 mg PO DAILY #30 cap.er.24h Tobramycin/Dexamethasone [Tobradex Ophth Susp] 1 drop BOTH EYES Q4HR Sulfamethox-Tmp 800-160Mg [Bactrim DS 800-160 mg] 1 tab PO Q12HR Discontinued Ibuprofen [Advil] 200 mg PO Q8HR PRN PRN Reason: Pain Discharge Medication List Venlafaxine HCl ER [Effexor XR] 75 mg PO DAILY #30 cap.er.24h 02/03/20 [Rx] Sulfamethox-Tmp 800-160Mg [Bactrim DS 800-160 mg] 1 tab PO Q12HR 12/18/20 [History] Tobramycin/Dexamethasone [Tobradex Ophth Susp] 1 drop BOTH EYES Q4HR 12/18/20 [History] Amoxic-Pot Clav 875-125Mg [Augmentin 875-125] 1 each PO Q12HR #14 tab 12/19/20 [Rx] Ibuprofen [Motrin] 600 mg PO QID PRN #30 tab 12/19/20 [Rx] Follow up Appointment(s)/Referral(s): Jake Carter MD [Primary Care Provider] - 12/25/20 11:00 am (you have a follow up appointment with Dr Carter on Friday, December 25, 2020 at 11:00.) David Penaloza MD [STAFF PHYSICIAN] - 12/19/20 12:00 pm Patient Instructions/Handouts: Orbital Cellulitis (GEN) Activity/Diet/Wound Care/Special Instructions: Good handwashing, drink plenty of fluids, avoid touching your face. It is recommended that you take a probiotic or eat yogurt daily. Finish all of your antibiotics as prescribed, both the Bactrim and the Augmentin. Call Dr Cartre if you develop a fever, increase in swelling, increase in pain, if you develop a fever or chills, or if you have any other concerns or questions. You will see Dr Guzman today for incision and drainage of the lump under your right eye/cheek at 12:00 noon. Discharge Disposition: HOME SELF-CARE
== END 2020-12-19 12:00 | disposition home or self-care (01) ==
LOC: EC 15:36 → 6PED 17:46
PROVIDERS: ADMIT Internal Medicine; ATTEND Internal Medicine
DX: L02.01 Cutaneous abscess of face (principal); L03.211 Cellulitis of face; F41.0 Panic disorder [episodic paroxysmal anxiety]; F17.200 Nicotine dependence, unspecified, uncomplicated; Z79.899 Other long term (current) drug therapy; Z88.1 Allergy status to other antibiotic agents; Z88.5 Allergy status to narcotic agent; Z88.8 Allergy status to other drugs, medicaments and biological substances; Z98.890 Other specified postprocedural states; Z82.49 Family history of ischemic heart disease and other diseases of the circulatory system
CPT/HCPCS: 96365; 96366; 96375; 99284; 36415; 80053; 83605; 85025; 87040; 87070; 87205; 70487; G0378 ×2; J0696; Q9967